=== PATIENT | female | born 1935 | race American Indian/Alaskan Native ===

== ENCOUNTER 2016-06-23 19:30 | Observation (INO) | payer MEDICARE, OTHER ==
[2016-06-23 19:53] VITALS: BMI 29.5
--- NOTE | 2016-06-23 20:06 | ED PDOC ---
Arrival/HPI - General Chief Complaint: High Blood Pressure Time Seen by Provider: 06/23/16 19:41 Historian: Patient - History of Present Illness Narrative History of Present Illness (Text): 06/23/16 20:06 80 year old female with a past medical history that includes diabetes mellitus, CAD with stenting, and hypertension presents with complaint of intermittent chest pain and epigastric discomfort for the past day associated with noted elevated high blood pressure. Patient states she has been compliant with her medications which include Amlodipine, Lisinopril, Carvedilol, Januvia and Metformin. Denies nausea, vomiting, or diarrhea. No shortness of breath. No fever or chills. Appetite intact. Time/Duration: 24 hours Symptom Onset: Sudden Symptom Course: Intermittent Modifying Factors (Text): None Context: Home Past Medical History - Provider Review Nursing Documentation Reviewed: Yes - Infectious Disease Hx of Infectious Diseases: None - Reproductive Menopause: Yes - Cardiac Hx Hypertension: Yes - Pulmonary Hx Respiratory Disorders: No - Neurological Hx Neurological Disorder: No - HEENT Hx HEENT Disorder: No Hx Cataracts: Yes Hx Glaucoma: Yes - Renal Hx Renal Disorder: No - Endocrine/Metabolic Hx Diabetes Mellitus Type 2: Yes - Hematological/Oncological Hx Blood Disorders: No - Integumentary Hx Dermatological Disorder: No - Musculoskeletal/Rheumatological Other/Comment: bunions - Gastrointestinal Hx Gastroesophageal Reflux: Yes - Genitourinary/Gynecological Hx Genitourinary Disorders: No - Psychiatric Hx Psychophysiologic Disorder: No Hx Substance Use: No - Surgical History Hx Appendectomy: Yes Hx Cataract Extraction: Yes Hx Hysterectomy: Yes - Anesthesia Hx Anesthesia: Yes Hx Anesthesia Reactions: No Hx Malignant Hyperthermia: No Family/Social History - Physician Review Nursing Documentation Reviewed: Yes Family/Social History: Unknown Family HX Smoking Status: Never Smoked Hx Alcohol Use: No Hx Substance Use: No Allergies/Home Meds Allergies/Adverse Reactions: Allergies No Known Allergies Allergy (Verified 11/10/14 21:39) Home Medications: Home Meds Medication Instructions Recorded Confirmed Atorvastatin [Lipitor] 40 mg PO HS 11/10/14 06/23/16 Carvedilol [Coreg] 25 mg PO BID 11/10/14 06/23/16 Cholecalciferol [Vitamin D 1000 IU] 1 cap PO BID 11/10/14 06/23/16 Esomeprazole Magnesium [Nexium] 40 mg PO DAILY 11/10/14 06/23/16 Lisinopril [Zestril] 1 tab PO DAILY 06/23/16 06/23/16 SITagliptin [Januvia] 1 tab PO DAILY 06/23/16 06/23/16 amLODIPine [Norvasc] 1 tab PO DAILY 06/23/16 06/23/16 metFORMIN [glucOPHAGE] 1 tab PO BID 06/23/16 06/23/16 Review of Systems - Physician Review All systems were reviewed & negative as marked: Yes - Review of Systems Constitutional: absent: Fevers Respiratory: absent: SOB Cardiovascular: Chest Pain Gastrointestinal: Abdominal Pain. absent: Diarrhea, Nausea, Vomiting, Appetite Changes Physical Exam Vital Signs Reviewed: Yes Vital Signs Pulse Resp BP Pulse Ox 06/23/16 22:31 81 16 155/81 H 97 06/23/16 20:06 91 H 16 187/98 H 96 Blood Pressure: Hypertensive Pulse: Regular Respiratory Rate: Normal Appearance: Positive for: Well-Appearing, Non-Toxic, Comfortable Pain Distress: None Mental Status: Positive for: Alert and Oriented X 3 - Systems Exam Head: Present: Atraumatic, Normocephalic Pupils: Present: PERRL Extroacular Muscles: Present: EOMI Conjunctiva: Present: Normal Mouth: Present: Moist Mucous Membranes Neck: Present: Normal Range of Motion Respiratory/Chest: Present: Clear to Auscultation, Good Air Exchange. No: Respiratory Distress, Accessory Muscle Use Cardiovascular: Present: Regular Rate and Rhythm, Normal S1, S2. No: Murmurs Abdomen: Present: Normal Bowel Sounds. No: Tenderness, Distention, Peritoneal Signs Back: Present: Normal Inspection Upper Extremity: Present: Normal Inspection. No: Cyanosis, Edema Lower Extremity: Present: Normal Inspection. No: Edema Neurological: Present: GCS=15, CN II-XII Intact, Speech Normal Skin: Present: Warm, Dry, Normal Color. No: Rashes Psychiatric: Present: Alert, Oriented x 3, Normal Insight, Normal Concentration Medical Decision Making ED Course and Treatment: Impression: 80 year old female with a past medical history that includes diabetes mellitus and hypertension presents with complaint of intermittent chest and abdominal discomfort for the past day associated with noted elevated high blood pressure. Plan: -- EKG, Chest X-ray -- Aspriin, Nitroglycerin 2% -- Labs -- Reassess and disposition Prior Visits: Notes and results from previous visits were reviewed. Patient last seen in the ED on 11/10/14 for dizziness and discharged home. Progress Notes: 06/23/16 21:27 reviewed radiology, CXR shows no active disease. 06/23/16 22:[address] Brown, who is aware and agrees with plan. Accepts pt in to his service. Pt will go to Telemetry observation for chest pain. Requests Dr. Isaca on consult. - Lab Interpretations Lab Results: 06/23/16 20:03 06/23/16 20:03 Lab Results 06/23/16 21:43: POC Glucose (mg/dL) 143 H 06/23/16 20:03: WBC 9.7 D, RBC 4.84, Hgb 13.8, Hct 41.0, MCV 84.7, MCH 28.5, MCHC 33.7, RDW 14.5, Plt Count 270, MPV 9.9, PT 11.0, INR 1.02, APTT 25.5, Sodium 137, Potassium 4.1, Chloride 99, Carbon Dioxide 28, Anion Gap 14, BUN 14 , Creatinine 0.7, Est GFR ( Amer) > 60, Est GFR (Non-Af Amer) > 60, Random Glucose 139 H, Calcium 10.2, Total Bilirubin 0.7, AST 33, ALT 36, Alkaline Phosphatase 69, Lactate Dehydrogenase 515, Total Creatine Kinase 127, Troponin I < 0.01, Total Protein 8.1, Albumin 4.2, Globulin 3.9, Albumin/ Globulin Ratio 1.1, Lipase 52 I have reviewed the lab results: Yes - RAD Interpretation Radiology Orders: 06/23/16 20:17 CHEST PORTABLE [RAD] Stat Data Processing Auditor: ED Physician - EKG Interpretation EKG Interpretation (Text): EKG shows NSR at 100 BPM with left axis deviation, nonspecific ST/T changes Interpreted by ED Physician: Yes Type: 12 lead EKG - Medication Orders Current Medication Orders: Discontinued Medications Aspirin (Aspirin) 325 mg PO ONCE STA Stop: 06/23/16 20:22 Last Admin: 06/23/16 22:28 Dose: 325 MG Nitroglycerin (Nitro-Bid 2% Oint) 1 ea TOP ONCE STA Stop: 06/23/16 20:22 Last Admin: 06/23/16 22:28 Dose: 1 EA - Scribe Statement The provider has reviewed the documentation as recorded by the Jah Reyna Provider Scribe Attestation: All medical record entries made by the Jah were at my direction and personally dictated by me. I have reviewed the chart and agree that the record accurately reflects my personal performance of the history, physical exam, medical decision making, and the department course for this patient. I have also personally directed, reviewed, and agree with the discharge instructions and disposition. Disposition/Present on Arrival - Present on Arrival Any Indicators Present on Arrival: No History of DVT/PE: No History of Uncontrolled Diabetes: No Urinary Catheter: No History of Decub. Ulcer: No History Surgical Site Infection Following: None - Disposition Have Diagnosis and Disposition been Completed?: Yes Diagnosis: Chest pain Disposition: HOSPITALIZED Disposition Time: 23:20 Patient Plan: Observation Patient Problems: Current Active Problems Problem Status Diagnosed Chest pain Acute Condition: STABLE Discharge Instructions (ExitCare): Chest Pain (ED)
[2016-06-23] MEDS ORDERED: Nitroglycerin 2% Ointment Foilpak UD TOP STA (20:21)
[2016-06-23 20:33] LABS: MEAN CELL VOLUME 84.7 fL (80.0-105.0); MEAN CORPUSCULAR HEMOGLOBIN 28.5 pg (25.0-35.0); MEAN CORPUSCULAR HGB CONC 33.7 g/dl (31.0-37.0); MEAN PLATELET VOLUME 9.9 fl (7.0-11.0); RED CELL DISTRIBUTION WIDTH 14.5 % (11.5-14.5); WHITE BLOOD COUNT 9.7 10^3/ul (4.5-11.0)
[2016-06-23 20:43] LABS: ALB/GLOB RATIO 1.1 (1.1-1.8); ALKALINE PHOSPHATASE 69 U/L (38-133); ALT/SGPT 36 U/L (7-56); AST/SGOT 33 U/L (15-39); BILIRUBIN,TOTAL 0.7 mg/dL (0.2-1.3); BLOOD UREA NITROGEN 14 mg/dL (7-21); CALCIUM 10.2 mg/dL (8.4-10.5); CARBON DIOXIDE 28 mmol/L (21-33); CHLORIDE 99 mmol/L (98-107); GFR AFRICAN-AMERICAN > 60; GLUCOSE,RANDOM 139 mg/dL (70-110); LIPASE 52 U/L (23-300); POTASSIUM 4.1 mmol/L (3.6-5.0); SODIUM 137 mmol/L (132-148); TOTAL PROTEIN 8.1 g/dL (5.8-8.3)
[2016-06-23 20:44] LABS: INR 1.02 (0.93-1.08); PARTIAL THROMBOPLASTIN TIME 25.5 Seconds (23.7-30.8)
[2016-06-23 20:55] LABS: TROPONIN I < 0.01 ng/mL
[2016-06-24 03:11] VITALS: RESP 20; TEMP 98.6
[2016-06-24 06:32] VITALS: O2SAT 98
--- NOTE | 2016-06-24 08:33 | RAD ---
HISTORY: PAIN COMPARISON: 11/10/2014 FINDINGS: LUNGS: No active pulmonary disease. PLEURA: No significant pleural effusion identified, no pneumothorax apparent. CARDIOVASCULAR: Normal. OSSEOUS STRUCTURES: Bilateral glenohumeral osteoarthritis. VISUALIZED UPPER ABDOMEN: Normal. OTHER FINDINGS: None. IMPRESSION: No active disease.
--- NOTE | 2016-06-24 08:54 | CON ---
DATE: 06/24/2016 INDICATIONS: Chest pain, abdominal pain. HISTORY OF PRESENT ILLNESS: This is an 80-year-old woman admitted yesterday through the Emergency Room when she came complaining of abdominal pain radiating into the epigastrium and into the chest. It occurred on and off during the day. She came to the Emergency Room and was admitted. This morning there are no symptoms. There was no orthopnea, PND, syncope, presyncope, lightheadedness, dizziness, vertigo, palpitations, edema, claudication, fever, chills, cough, sputum production, hemoptysis, nausea, vomiting, diarrhea, constipation, melena. PAST MEDICAL HISTORY: Notable for coronary artery disease. She states that she had a coronary intervention several years ago. She does not recall the details, the location or the physician. Apparently a stent was placed in one of her arteries at that time. There is a history of diabetes, hypertension, hyperlipidemia, cataract surgery. There is no history of rheumatic fever, myocardial infarction, congestive heart failure, stroke, TIA or gout. MEDICATIONS: At the time of admission include Lipitor, Coreg, vitamin D, Nexium , lisinopril, Januvia, amlodipine, Glucophage. ALLERGIES: There are no medication allergies reported. SOCIAL HISTORY: She is a nonsmoker. She does not drink. She lives at home. FAMILY HISTORY: Not available. REVIEW OF SYSTEMS: Ten point review of systems otherwise unremarkable except as noted above. PHYSICAL EXAMINATION: GENERAL: She is a well-developed elderly woman lying in bed on telemetry in no acute distress. VITAL SIGNS: Notable for sinus rhythm at 74 beats per minute. She is afebrile. Blood pressure 136/72, respirations 16-20, O2 sat 96% to 98% on room air. HEENT: Reveals no neck vein distention, thyromegaly, or carotid bruits. Mucous membranes are moist. Conjunctivae are pink. NECK: Supple. RESPIRATORY: Lung cesar are clear. HEART: Revealed normal first and second heart sounds. There is a soft systolic murmur along the left sternal border. PMI not displaced. ABDOMEN: Soft. Bowel sounds are present. No mass, organomegaly, tenderness, rebound, or guarding. No CVA tenderness. No palpable abdominal aortic aneurysm. EXTREMITIES: Revealed no cyanosis, clubbing, or edema. NEUROLOGIC: She was awake, alert and oriented. PSYCHIATRIC: Normal as to mood and affect. SKIN: Warm and dry. No rash or cellulitis. LABORATORY AND IMAGING: A chest x-ray is a portable study. It is not reported yet. By my reading there is no congestive heart failure, infiltrate or effusion. The EKG demonstrates regular sinus rhythm, left axis deviation, poor R-wave progression, nonspecific ST wave changes. No change from a previous EKG. CBC is unremarkable. PT, INR, PTT unremarkable. Electrolytes, BUN, creatinine unremarkable. LFTs unremarkable. CK 127. Troponin less than 0.01. Lipase 52. IMPRESSION: The patient is an 80-year-old woman with hypertension, diabetes, hyperlipidemia, coronary artery disease and a prior coronary artery stent 3 or 4 years ago (details unavailable) admitted with abdominal, mid epigastric and chest pain episodes yesterday, which have resolved. The EKG did not show any new ischemic change and the first troponin was negative. She is comfortable this morning. I will repeat her EKG and get a troponin level. I will check an echocardiogram. She can be out of bed. If her enzymes are negative and there are no further episodes, she can be considered for outpatient nuclear stress testing. If there is continued abdominal pain a GI evaluation may also be indicated. I will continue her usual medications at this time including aspirin, Coreg, Lipitor, Norvasc, lisinopril. She will continue her diabetic meds as well. I will follow along with you. I will make additional recommendations based on her clinical course. Toi Isaac MD cc: [id number] TT: 06/24/2016 08:53:00 Confirmation # [id number] Dictation # [id number] anthony SCHROEDER
[2016-06-24 09:27] VITALS: BP 156/84
--- NOTE | 2016-06-24 09:44 | HP ---
An 80-year-old black female with history of hypertension, glaucoma, hyperlipidemia, CAD, status post stents. The patient admitted to the hospital with abdominal pain and accelerated hypertension. The patient had been complaining of 2-3 days of some abdominal pain. She does have occasional constipati on, in which she self-medicates with. She also denies any chest pain, palpitations, lightheadedness, dizziness, diaphoresis, nausea or vomiting. Does complain of abdominal discomfort, mid epigastric a nd left upper quadrant, for last 24-48 hours. SOCIAL HISTORY: Negative for tobacco or alcohol or IV drug abuse or illicit drug abuse. FAMILY HISTORY: Noncontributory. PAST SURGICAL HISTORY: Only for eye surgery and glaucoma. MEDICATIONS: As stated in the chart. REVIEW OF SYSTEMS: A 12-point is otherwise unremarkable. PHYSICAL EXAMINATION: GENERAL: Shows a well-developed, but slightly obese, black female, in no apparent distress. HEENT: Essentially within normal limits. HEART: Regular sinus rhythm. Negative S3, no murmurs. CHEST: Clear to auscultation and percussion. ABDOMEN: Soft. No masses palpable. No rebound or guarding. VITAL SIGNS: Blood pressure right now is 136/72, temperature is 98.6. LABORATORY DATA: Unremarkable except for a slightly elevated blood sugar of 139. The patient is on metformin for this. IMPRESSION: Abdominal pain, hypertension and glaucoma in an 80-year-old black female with a history of coronary artery disease. PLAN: To repeat troponins x 2, EKG echo. If negative, patient will be discharged home. Abilio Brown MD cc: [id number] TT: 06/24/2016 09:44:25 en
[2016-06-24] MEDS ORDERED: Pantoprazole 40 mg Susp UD PO SCH (10:00)
--- NOTE | 2016-06-24 10:18 | CARD ---
APPROVED REPORT EKG Measurement Heart [id number] <Conclusion> Normal sinus rhythm Left axis deviation Moderate voltage criteria for LVH, may be normal variant Abnormal ECG
--- NOTE | 2016-06-24 12:37 | CARD ---
APPROVED REPORT EKG Measurement Heart [id number] <Conclusion> Normal sinus rhythm Left axis deviation Moderate voltage criteria for LVH, may be normal variant Nonspecific ST and T wave abnormality
[2016-06-24 13:06] VITALS: PULSE 86
--- NOTE | 2016-06-25 07:39 | CARD ---
APPROVED REPORT EXAM: Two-dimensional and M-mode echocardiogram with Doppler and color Doppler. Other Information Quality : AverageRhythm : INDICATION Chest Pain 2D DIMENSIONS Left Atrium (2D)4.2 (1.6-4.0cm)IVSd1.2 (0.7-1.1cm) LVDd4.1 (3.9-5.9cm)PWd1.2 (0.7-1.1cm) LVDs3.0 (2.5-4.0cm)FS (%) 26.9 % LVEF (%)53.0 (>50%) M-Mode DIMENSIONS Aortic Root3.20 (2.2-3.7cm)Aortic Cusp Exc.2.00 (1.5-2.0cm) Aortic Valve AoV Peak Uqokopkp480.0cm/sLVOT Peak Ppfeuldn33.8cm/sLVOT VTI18.70cm AI P 1/2 [id number] Mitral Valve MV E Nphzkdgs86.9cm/sMV A [place]11.3cm/sE/A ratio0.6 TDI Lateral E' Peak V8.19cm/sMedial E' Peak V5.46cm/sE/Lateral E'4.7 E/Medial E'7.1 Pulmonary Valve PV Peak Azwquqkt74.7cm/sPV Peak Grad.2mmHg Tricuspid Valve TR Peak Dwxvueyl199re/sRAP [id number] Peak Gr.38mmHg [id number] LEFT VENTRICLE The left ventricle is normal size. There is normal left ventricular wall thickness. The left ventricular function is normal. The left ventricular ejection fraction is within the normal range. There is normal LV segmental wall motion. RIGHT VENTRICLE The right ventricle is normal size. ATRIA The left atrium is mildly dilated. The right atrium size is normal. The interatrial septum is intact with no evidence for an atrial septal defect. AORTIC VALVE The aortic valve is mildly calcified. There is trace aortic regurgitation. MITRAL VALVE The mitral valve is normal in structure. Mitral regurgitation is mild. TRICUSPID VALVE The tricuspid valve is normal in structure. There is mild tricuspid regurgitation. There is mild-moderate pulmonary hypertension. PULMONIC VALVE The pulmonic valve is not well visualized. GREAT VESSELS The aortic root is normal in size. PERICARDIAL EFFUSION There is no pericardial effusion. <Conclusion> 272-2 There is normal left ventricular wall thickness. The left ventricular function is normal. There is trace aortic regurgitation. Mitral regurgitation is mild. There is mild tricuspid regurgitation. There is mild-moderate pulmonary hypertension.
--- NOTE | 2016-07-11 10:29 | DS ---
An 80-year-old black female admitted to the hospital with accelerated hypertension, some chest discom fort. The patient was seen in consultation by Dr. Isaac. Her blood pressure was controlled in the hospital. She had an echocardiogram done while in the hospital. Her enzymes remained negative. EKG did not change. Her echo showed some normal left wall thickness, mild mitral regurgitation, mild to moderate pulmonary hypertension. The patient was continued on her blood pressure medication. Her vi madalyn signs trended down. Blood pressure was 156/84. LABORATORY DATA: Unremarkable. Blood sugars were mildly elevated up to 182. Troponins were negativ e x 2. Eventually, the patient was able to be discharged home in improved condition. FINAL DISCHARGE DIAGNOSES: Accelerated hypertension, nonspecific chest pain, glaucoma and cataracts. The patient will be followed as an outpatient. Abilio Brown MD cc: [id number] TT: 07/11/2016 10:28:20 leia
== END 2016-06-24 13:47 | disposition home or self-care (01) ==
LOC: ED 19:30 → ERH 23:14 → 2RSO 06-24 01:48
PROVIDERS: ADMIT Internal Medicine; ATTEND Internal Medicine
DX: R07.9 Chest pain, unspecified (principal); I10 Essential (primary) hypertension; I25.10 Atherosclerotic heart disease of native coronary artery without angina pectoris; E11.9 Type 2 diabetes mellitus without complications; E78.5 Hyperlipidemia, unspecified; K59.00 Constipation, unspecified; H40.9 Unspecified glaucoma; R10.9 Unspecified abdominal pain; Z95.5 Presence of coronary angioplasty implant and graft; Z79.84 Long term (current) use of oral hypoglycemic drugs
CPT/HCPCS: 36415; 71010; 80053; 82550; 82948; 83615; 83690; 84484; 85027; 85610; 85730; 93005; 93306; 99285; G0378

== ENCOUNTER 2016-07-01 13:04 | Emergency (ER) | payer MEDICARE, OTHER ==
[2016-07-01 13:13] VITALS: BMI 29.2
[2016-07-01 13:15] VITALS: TEMP 98.7
--- NOTE | 2016-07-01 13:51 | ED PDOC ---
Arrival/HPI - General Chief Complaint: Abdominal Pain Time Seen by Provider: 07/01/16 13:26 Historian: Patient, Family - History of Present Illness Narrative History of Present Illness (Text): 07/01/16 13:47 An 80 year old female presents to the emergency department complaining of one week duration of chest and epigastric pain. Patient's daughter reports patient had taken aspirin before coming to emergency department. Patient denies any other complaints at this time. PMD: Dr. Brown Time/Duration: 1 week Symptom Onset: Sudden Symptom Course: Unchanged Quality: Other (pain) Activities at Onset: Rest Modifying Factors (Text): aspirin Context: Home Associated Symptoms (Text): lightheaded (near syncope) Past Medical History - Provider Review Nursing Documentation Reviewed: Yes - Infectious Disease Hx of Infectious Diseases: None - Cardiac Hx Cardiac Disorders: Yes Hx Hypertension: Yes - Pulmonary Hx Respiratory Disorders: Yes Hx Bronchitis: Yes - Neurological Hx Neurological Disorder: Yes Hx Dizziness: Yes - HEENT Hx HEENT Disorder: Yes Hx Cataracts: Yes (with surgery) Hx Glaucoma: Yes - Renal Hx Renal Disorder: No - Endocrine/Metabolic Hx Endocrine Disorders: Yes Hx Diabetes Mellitus Type 2: Yes - Hematological/Oncological Hx Blood Disorders: No - Integumentary Hx Dermatological Disorder: No - Musculoskeletal/Rheumatological Hx Musculoskeletal Disorders: Yes Hx Falls: Yes - Gastrointestinal Hx Gastrointestinal Disorders: Yes Hx Gastroesophageal Reflux: Yes - Genitourinary/Gynecological Hx Genitourinary Disorders: No - Psychiatric Hx Psychophysiologic Disorder: No Hx Substance Use: No - Surgical History Hx Appendectomy: Yes Hx Breast Biopsy: Yes Hx Cardiac Catheterization: Yes Hx Coronary Stent: Yes (x1) Hx Hysterectomy: Yes Other/Comment: tonsillectomy - Anesthesia Hx Anesthesia: Yes Hx Anesthesia Reactions: No Hx Malignant Hyperthermia: No Family/Social History - Physician Review Nursing Documentation Reviewed: Yes Family/Social History: No Known Family HX Smoking Status: Never Smoked Hx Alcohol Use: No Hx Substance Use: No Allergies/Home Meds Allergies/Adverse Reactions: Allergies No Known Allergies Allergy (Verified 07/01/16 13:13) Home Medications: Home Meds Medication Instructions Recorded Confirmed Atorvastatin [Lipitor] 40 mg PO HS 11/10/14 07/01/16 Carvedilol [Coreg] 25 mg PO BID 11/10/14 07/01/16 Cholecalciferol [Vitamin D 1000 IU] 1 cap PO BID 11/10/14 07/01/16 Esomeprazole Magnesium [Nexium] 40 mg PO DAILY 11/10/14 07/01/16 Lisinopril [Zestril] 1 tab PO DAILY 06/23/16 07/01/16 SITagliptin [Januvia] 1 tab PO DAILY 06/23/16 07/01/16 amLODIPine [Norvasc] 1 tab PO DAILY 06/23/16 07/01/16 metFORMIN [glucOPHAGE] 1 tab PO BID 06/23/16 07/01/16 Review of Systems - Physician Review All systems were reviewed & negative as marked: Yes Physical Exam - Physical Exam Narrative Physical Exam (Text): 07/01/16 13:52- Review of Systems Constitutional: Normal. absent: Fatigue, Weight Change, Fevers Eyes: Normal ENT: Normal Respiratory: Normal absent: SOB, Cough, Sputum Cardiovascular: Present: chest pain, near syncope absent: Palpitations Gastrointestinal: Present: epigastric pain absent: Diarrhea, Nausea, Vomiting Genitourinary: Normal. absent: Dysuria, Frequency, Hematuria Musculoskeletal: Normal. absent: Arthralgias, Back Pain, Neck Pain Skin: Normal Neurological: Normal absent: Focal Weakness Endocrine: Normal Hemo/Lymphatic: Normal Psychiatric: Normal - Physical exam Patient appears age appropriate, speaking full sentences without difficulty - Systems Exam Head: Present: Atraumatic, Normocephalic Pupils: Present: PERRL Extraocular Muscles: Present: EOMI Conjunctiva: Present: Normal Mouth: Present: Moist Mucous Membranes Neck: Present: Normal Range of Motion. No: MIDLINE TENDERNESS, Paraspinal Tenderness Respiratory/Chest: Present: Clear to Auscultation, Good Air Exchange. No: Respiratory Distress, Accessory Muscle Use, Tachypneic Cardiovascular: Present: Regular Rate and Rhythm, Normal S1, S2, Peripheral Pulses Present. No: Murmurs Abdomen: Present: Normal Bowel Sounds, No: Tenderness, Peritoneal Signs, Rebound, Guarding, Distention Back: Present: Normal Inspection. No: Midline Tenderness, Paraspinal Tenderness Upper Extremity: Present: Normal Inspection. No: Cyanosis, Edema Lower Extremity: Present: Normal Inspection. No: Edema Neurological: Present: GCS=15, Speech Normal, cranial nerves II through XII fully intact with no cerebellar abnormality, neuro-sensory fully intact. No focal neurological deficits. Skin: Present: Warm, Dry, Normal Color. No: Rashes Lymphatic: Present: OX3, NI, NC Psychiatric: Present: Alert, Oriented x 3, Normal Insight, Normal Concentration Vital Signs Reviewed: Yes Vital Signs Temp Pulse Pulse Resp BP BP Pulse Ox 07/01/16 16:57 75 18 165/79 H 96 07/01/16 15:02 79 18 168/86 H 96 07/01/16 13:15 80 174/89 H 07/01/16 13:14 98.7 F 89 16 177/93 H 96 Temperature: Afebrile Blood Pressure: Hypertensive Pulse: Regular Respiratory Rate: Normal Appearance: Positive for: Well-Appearing, Non-Toxic, Comfortable Pain Distress: None Mental Status: Positive for: Alert and Oriented X 3 Medical Decision Making ED Course and Treatment: 07/01/16 13:52 Impression: An 80 year old female with chest and epigastric pain. On physical exam, patient had no acute findings. Plan: -- EKG -- Chest xray -- Labs -- Nitrostat -- Reassess and disposition Prior Visits: Notes and results from previous visits were reviewed. Patient last seen in the emergency department on 06/23/16 for evaluation of intermittent chest pain and epigastric discomfort. Dr. Brown accepted patient to his service. Patient was in telemetry observation for chest pain. Progress Notes: EKG: Ordered, reviewed, and independently interpreted the EKG. Rate : 80 BPM Rhythm : NSR Interpretation : No ST-segment elevations or depressions, no T-wave inversions, normal intervals. No changes versus previous EKG Chest xray: Creator : Rodolfo Michel MD IMPRESSION: No active disease. 07/01/16 15:[address] Brown in detail. He states to discharge patient home with outpatient follow-up in his office on Friday. Noted that patient did not have a recent CAT scan of abdomen and pelvis, patient was complaining of epigastric discomfort. Additional imaging ordered. 07/01/16 17:34 Metal Products Viewer : Ronnie Tapia MD PROCEDURE: CT Abdomen and pelvis dated 07/01/2016 Radiation dose: LOWER THORAX: Mild the atelectasis both lung bases. No focal consolidation effusion or pneumothorax. . Heart size is borderline/mildly enlarged. Small hiatal hernia. LIVER: Liver exhibits relatively normal size measuring 17 cm in CC dimension. No obvious hepatic mass collection or calcification. GALLBLADDER AND BILE DUCTS: Gallbladder is physiologically distended. No evidence of intraluminal gallbladder calculi. PANCREAS: Visualized portions of the pancreas grossly unremarkable. SPLEEN: Spleen exhibits normal size and attenuation pattern. ADRENALS: On somewhat prominent and nodular appearing left adrenal gland. The possibility of an underlying nodule not excluded KIDNEYS AND URETERS: Kidneys exhibit symmetric nephrograms. No evidence of nephrolithiasis or hydronephrosis. Parapelvic renal cysts are felt to be present. There is a tiny approximately 4 mm low-attenuation focus upper pole left kidney that is too small to characterize though could represent tiny cyst. Another even smaller focus low attenuation posterior aspect lower pole BLADDER: The urinary bladder is significantly distended. Rule out urinary retention. REPRODUCTIVE: Status post hysterectomy APPENDIX: Appendix is not seen consistent with this patient's history of appendectomy. BOWEL: Evaluation of the bowel is limited due to the lack of oral contrast material. The stomach incompletely distended which may account for thick-walled appearance. The possibility of gastritis or other intrinsic/ invasive wall lesion including but not limited to gastric carcinoma cannot be excluded. Clinical correlation recommended. Visualized loops of small bowel exhibit normal contour and caliber. No evidence of acute mechanical small bowel obstruction. . Moderate amount of stool seen within the cecum and to a lesser degree ascending colon suggesting mild fecal retention. No evidence of mural wall thickening. PERITONEUM: Unremarkable. No fluid collection. No free air. LYMPH NODES: Unremarkable. No enlarged lymph nodes. VASCULATURE: Unremarkable. No aortic aneurysm. BONES: No fracture or destructive lesion. OTHER FINDINGS: None. IMPRESSION: Markedly enlarged urinary bladder. Rule out urinary retention. Small parapelvic and tiny cortical cyst left kidney. Slightly prominent and nodular appearing left adrenal gland. Mild wall thickening of the stomach to likely due to underdistention however gastritis or other intrinsic/ invasive wall lesion including but not limited to gastric carcinoma not excluded. Clinical correlation recommended. On reevaluation, patient reports that she feels much better and would like to be discharged home. Patient's repeat abdominal exam is soft, nontender, non distended with positive bowel sounds in all 4 quadrants and no peritoneal signs. Patient is tolerating PO without any difficulty. CAT scan read has been reviewed with patient and she was instructed to follow- up with her primary physician for further workup. dw Dr. Brown again, states he will arrange f/u for pt Patient currently states she has no chest discomfort, says that she has no abdominal pain, back pain, denies shortness of breath or dyspnea on exertion. Pt states she understands to return to the ER right away for new or worsening symptoms or for inability to f/u with PMD or specialist as instructed. Patient states that she fully agrees with and understands discharge instructions. States that she agrees with the plan and disposition. Verbalized and repeated discharge instructions and plan. I have given the patient opportunity to ask any additional questions. ctions and plan. I have given the patient opportunity to ask any additional questions. - Lab Interpretations Lab Results: 07/01/16 14:10 07/01/16 14:10 Lab Results 07/01/16 14:10: Sodium 140, Potassium 4.6, Chloride 103, Carbon Dioxide 28, Anion Gap 14, BUN 12, Creatinine 0.8, Est GFR ( Amer) > 60, Est GFR (Non- Af Amer) > 60, Random Glucose 100, Calcium 10.0, Total Bilirubin 0.7, AST 34, ALT 43, Alkaline Phosphatase 61, Lactate Dehydrogenase 461, Total Creatine Kinase 90, Troponin I < 0.01, Total Protein 7.6, Albumin 4.0, Globulin 3.6, Albumin/Globulin Ratio 1.1 07/01/16 14:10: PT 10.7, INR 0.99, APTT 24.6 07/01/16 14:10: WBC 8.6, RBC 4.56, Hgb 13.1, Hct 39.3, MCV 86.2, MCH 28.7, MCHC 33.3, RDW 14.7 H, Plt Count 265, MPV 9.9, Gran % 64.8, Lymph % (Auto) 24.4, Boundary % (Auto) 9.0 H, Eos % (Auto) 1.6, Baso % (Auto) 0.2, Gran # 5.58, Lymph # 2.1, Boundary # 0.8 H, Eos # 0.1, Baso # 0.02 I have reviewed the lab results: Yes - RAD Interpretation Radiology Orders: 07/01/16 13:42 CHEST PORTABLE [RAD] Stat 07/01/16 15:08 ABD & PELVIS IV CONTRAST ONLY [CT] Stat - EKG Interpretation Interpreted by ED Physician: Yes Type: 12 lead EKG - Medication Orders Current Medication Orders: Discontinued Medications Sodium Chloride (Sodium Chloride 0.9%) 1,000 mls @ 1,000 mls/hr IV .Q1H STA Stop: 07/01/16 16:07 Last Admin: 07/01/16 15:57 Dose: 1,000 mls/hr Iohexol (Omnipaque 350 100 Ml) Confirm Administered Dose 350 mg .ROUTE .STK-MED ONE Stop: 07/01/16 16:20 Nitroglycerin (Nitrostat Sl Tab) 0.3 mg SL STAT STA Stop: 07/01/16 13:42 Last Admin: 07/01/16 14:01 Dose: 0.3 mg - Scribe Statement The provider has reviewed the documentation as recorded by the Luisibkirt Gomes All medical record entries made by the uLisibkirt were at my direction and personally dictated by me. I have reviewed the chart and agree that the record accurately reflects my personal performance of the history, physical exam, medical decision making, and the department course for this patient. I have also personally directed, reviewed, and agree with the discharge instructions and disposition. Disposition/Present on Arrival - Present on Arrival Any Indicators Present on Arrival: No History of DVT/PE: No History of Uncontrolled Diabetes: No Urinary Catheter: No History of Decub. Ulcer: No History Surgical Site Infection Following: None - Disposition Have Diagnosis and Disposition been Completed?: Yes Diagnosis: Epigastric pain Disposition: HOME/ ROUTINE Disposition Time: 17:42 Patient Plan: Discharge Condition: GOOD Discharge Instructions (ExitCare): Chest Pain (ED), Epigastric Pain (ED) Additional Instructions: PLEASE RETURN TO THE EMERGENCY DEPARTMENT FOR NEW OR WORSENING SYMPTOMS. RETURN RIGHT AWAY IF YOU CANNOT FOLLOW UP WITH YOUR PRIMARY CARE DOCTOR, CLINIC, OR SPECIALIST IN 1-2 DAYS. Referrals: Abilio Brown MD [Primary Care Provider] - Follow up with primary
--- NOTE | 2016-07-01 14:11 | RAD ---
HISTORY: cough COMPARISON: 06/23/2016 FINDINGS: LUNGS: No active pulmonary disease. PLEURA: No significant pleural effusion identified, no pneumothorax apparent. CARDIOVASCULAR: Normal. OSSEOUS STRUCTURES: No significant abnormalities. VISUALIZED UPPER ABDOMEN: Normal. OTHER FINDINGS: None. IMPRESSION: No active disease.
[2016-07-01 14:18] LABS: ADD MANUAL DIFF? NO
[2016-07-01 14:24] LABS: BASO # 0.02 K/mm3 (0.0-2.0); BASO % 0.2 % (0.0-3.0); EOS # 0.1 (0.0-0.7); EOS % 1.6 % (1.5-5.0); GRAN # 5.58 (1.4-6.5); GRAN % 64.8 % (50.0-68.0); HEMATOCRIT 39.3 % (36.0-48.0); LYMPH # 2.1 (1.2-3.4); LYMPH % 24.4 % (22.0-35.0); MEAN CELL VOLUME 86.2 fL (80.0-105.0); MEAN CORPUSCULAR HEMOGLOBIN 28.7 pg (25.0-35.0); MEAN CORPUSCULAR HGB CONC 33.3 g/dl (31.0-37.0); MEAN PLATELET VOLUME 9.9 fl (7.0-11.0); MONO # 0.8 (0.1-0.6); PLATELET COUNT 265 10^3/uL (120.0-450.0); RED CELL DISTRIBUTION WIDTH 14.7 % (11.5-14.5); WHITE BLOOD COUNT 8.6 10^3/ul (4.5-11.0)
[2016-07-01 14:40] LABS: INR 0.99 (0.93-1.08); PARTIAL THROMBOPLASTIN TIME 24.6 Seconds (23.7-30.8)
[2016-07-01 14:43] LABS: ALB/GLOB RATIO 1.1 (1.1-1.8); ALKALINE PHOSPHATASE 61 U/L (38-133); ALT/SGPT 43 U/L (7-56); AST/SGOT 34 U/L (15-39); BILIRUBIN,TOTAL 0.7 mg/dL (0.2-1.3); BLOOD UREA NITROGEN 12 mg/dL (7-21); CARBON DIOXIDE 28 mmol/L (21-33); CHLORIDE 103 mmol/L (98-107); GFR AFRICAN-AMERICAN > 60; GLUCOSE,RANDOM 100 mg/dL (70-110); POTASSIUM 4.6 mmol/L (3.6-5.0); SODIUM 140 mmol/L (132-148); TOTAL PROTEIN 7.6 g/dL (5.8-8.3)
[2016-07-01 14:54] LABS: TROPONIN I < 0.01 ng/mL
[2016-07-01] MEDS ORDERED: Sodium Chloride 0.9% 1,000 ML IV STA (15:08)
[2016-07-01] MEDS ORDERED: Iohexol 350 MG/100 ML VIAL ONE (16:19)
--- NOTE | 2016-07-01 17:31 | CT ---
PROCEDURE: CT Abdomen and pelvis dated 07/01/2016 HISTORY: abd pain. Patient questionnaire indicates prior hysterectomy and appendectomy. COMPARISON: None. TECHNIQUE: Contiguous axial images of the abdomen and pelvis. Oral contrast was administered. No IV contrast given. Coronal and Sagittal reformats generated. Radiation dose: Total exam DLP = mGy-cm. This CT exam was performed using one or more of the following dose reduction techniques: Automated exposure control, adjustment of the mA and/or kV according to patient size, and/or use of iterative reconstruction technique. Contrast dose: 100 cc of Omnipaque 350 contrast material Radiation dose: Total exam DLP = 1115.45 mGy-cm. FINDINGS: LOWER THORAX: Mild the atelectasis both lung bases. No focal consolidation effusion or pneumothorax. . Heart size is borderline/mildly enlarged. Small hiatal hernia. LIVER: Liver exhibits relatively normal size measuring 17 cm in CC dimension. No obvious hepatic mass collection or calcification. GALLBLADDER AND BILE DUCTS: Gallbladder is physiologically distended. No evidence of intraluminal gallbladder calculi. PANCREAS: Visualized portions of the pancreas grossly unremarkable. SPLEEN: Spleen exhibits normal size and attenuation pattern. ADRENALS: On somewhat prominent and nodular appearing left adrenal gland. The possibility of an underlying nodule not excluded KIDNEYS AND URETERS: Kidneys exhibit symmetric nephrograms. No evidence of nephrolithiasis or hydronephrosis. Parapelvic renal cysts are felt to be present. There is a tiny approximately 4 mm low-attenuation focus upper pole left kidney that is too small to characterize though could represent tiny cyst. Another even smaller focus low attenuation posterior aspect lower pole BLADDER: The urinary bladder is significantly distended. Rule out urinary retention. REPRODUCTIVE: Status post hysterectomy APPENDIX: Appendix is not seen consistent with this patient's history of appendectomy. BOWEL: Evaluation of the bowel is limited due to the lack of oral contrast material. The stomach incompletely distended which may account for thick-walled appearance. The possibility of gastritis or other intrinsic/ invasive wall lesion including but not limited to gastric carcinoma cannot be excluded. Clinical correlation recommended. Visualized loops of small bowel exhibit normal contour and caliber. No evidence of acute mechanical small bowel obstruction. . Moderate amount of stool seen within the cecum and to a lesser degree ascending colon suggesting mild fecal retention. No evidence of mural wall thickening. PERITONEUM: Unremarkable. No fluid collection. No free air. LYMPH NODES: Unremarkable. No enlarged lymph nodes. VASCULATURE: Unremarkable. No aortic aneurysm. BONES: No fracture or destructive lesion. OTHER FINDINGS: None. IMPRESSION: Markedly enlarged urinary bladder. Rule out urinary retention. Small parapelvic and tiny cortical cyst left kidney. Slightly prominent and nodular appearing left adrenal gland. Mild wall thickening of the stomach to likely due to underdistention however gastritis or other intrinsic/ invasive wall lesion including but not limited to gastric carcinoma not excluded. Clinical correlation recommended.
[2016-07-01 18:44] VITALS: BP 168/91; PULSE 80; RESP 20; O2SAT 97
--- NOTE | 2016-07-02 23:12 | CARD ---
APPROVED REPORT EKG Measurement Heart [id number] <Conclusion> Normal sinus rhythm Left axis deviation Minimal voltage criteria for LVH, may be normal variant Abnormal ECG
== END 2016-07-01 18:55 | disposition home or self-care (01) ==
LOC: ED 13:04
DX: R10.13 Epigastric pain (principal); I10 Essential (primary) hypertension; E11.9 Type 2 diabetes mellitus without complications
CPT/HCPCS: 71010; 74177; 80053; 82550; 82948; 83615; 84484; 85025; 85610; 85730; 93005; 99285; J7040; Q9967

== ENCOUNTER 2016-07-17 08:47 | Day surgery (SDC) | payer MEDICARE, OTHER ==
[2016-07-12 09:11] VITALS: BMI 29.3
[2016-07-17] MEDS ORDERED: Lidocaine 1% Inj (20ml) ONE (10:23)
[2016-07-17] MEDS ORDERED: Propofol 10 mg/ml Inj (20 ML) ONE (10:23)
[2016-07-17] MEDS ORDERED: Lactated Ringer's 1,000 ML IV SCH (10:39)
[2016-07-17 12:08] VITALS: BP 156/85; PULSE 82; RESP 16; TEMP 98; O2SAT 99
== END 2016-07-17 12:23 | disposition home or self-care (01) ==
LOC: ENDO 08:47
PROVIDERS: ATTEND Specialist
DX: K31.7 Polyp of stomach and duodenum (principal); R10.13 Epigastric pain; K44.9 Diaphragmatic hernia without obstruction or gangrene; E11.9 Type 2 diabetes mellitus without complications; I10 Essential (primary) hypertension; I25.10 Atherosclerotic heart disease of native coronary artery without angina pectoris
CPT/HCPCS: 43239; 88305; 88342; J2704; J7120

== ENCOUNTER 2016-08-06 10:00 | Inpatient (IN) | payer MEDICARE, OTHER ==
[2016-08-06 10:04] VITALS: BMI 29.5
--- NOTE | 2016-08-06 10:37 | ED PDOC ---
Arrival/HPI - General Chief Complaint: Abdominal Pain Time Seen by Provider: 08/06/16 10:07 Historian: Patient, Family - History of Present Illness Narrative History of Present Illness (Text): 08/06/16 10:40 An 80 year old female presents to the emergency department complaining of chest pain since this morning. Patient also notes shortness of breath. Patient's family reports chest and epigastric pain similar to previous episodes she has had in the past. Patient currently does not have chest pain. Patient denies any other complaints at this time. PMD: Dr. Brown Symptom Onset: Sudden Symptom Course: Improving Activities at Onset: Rest Context: Home Associated Symptoms (Text): shortness of breath Past Medical History - Provider Review Nursing Documentation Reviewed: Yes - Infectious Disease Hx of Infectious Diseases: None - Reproductive Menopause: Yes - Cardiac Hx Hypertension: Yes - Pulmonary Hx Respiratory Disorders: Yes Hx Bronchitis: Yes - Neurological Hx Neurological Disorder: Yes Hx Dizziness: Yes - HEENT Hx HEENT Disorder: Yes Hx Cataracts: Yes (with surgery) Hx Glaucoma: Yes - Renal Hx Renal Disorder: No - Endocrine/Metabolic Hx Endocrine Disorders: Yes Hx Diabetes Mellitus Type 2: Yes - Hematological/Oncological Hx Blood Transfusions: Yes (POSSIBLY IN S NOT SURE) Hx Blood Transfusion Reaction: (UNKNOWN) - Integumentary Hx Dermatological Disorder: No - Musculoskeletal/Rheumatological Hx Musculoskeletal Disorders: No - Gastrointestinal Hx Gastrointestinal Disorders: Yes Hx Gastroesophageal Reflux: Yes - Genitourinary/Gynecological Hx Genitourinary Disorders: No - Psychiatric Hx Emotional Abuse: No Hx Physical Abuse: No Hx Substance Use: No - Surgical History Hx Hysterectomy: Yes Other/Comment: Multiple eye surgeries - Anesthesia Hx Anesthesia Reactions: No Hx Malignant Hyperthermia: No - Suicidal Assessment Feels Threatened In Home Enviroment: No Family/Social History - Physician Review Nursing Documentation Reviewed: Yes Family/Social History: No Known Family HX Smoking Status: Never Smoked Hx Alcohol Use: No Hx Substance Use: No Allergies/Home Meds Allergies/Adverse Reactions: Allergies No Known Allergies Allergy (Verified 08/06/16 10:08) Home Medications: Home Meds Medication Instructions Recorded Confirmed Atorvastatin [Lipitor] 40 mg PO HS 11/10/14 08/06/16 Carvedilol [Coreg] 25 mg PO BID 11/10/14 08/06/16 Cholecalciferol [Vitamin D 1000 IU] 1,000 iu PO BID 11/10/14 08/06/16 Esomeprazole Magnesium [Nexium] 40 mg PO DAILY 11/10/14 08/06/16 Lisinopril [Zestril] 40 mg PO DAILY 06/23/16 08/06/16 SITagliptin [Januvia] 100 mg PO DAILY 06/23/16 08/06/16 amLODIPine [Norvasc] 5 mg PO DAILY 06/23/16 08/06/16 metFORMIN [glucOPHAGE] 500 mg PO BID 06/23/16 08/06/16 Aspirin [[place] Aspirin] 81 mg PO DAILY 07/12/16 08/06/16 Multivit-Min/FA/Lycopen/Lutein 1 tab PO DAILY 07/17/16 08/06/16 [Centrum Silver Tablet] Review of Systems - Physician Review All systems were reviewed & negative as marked: Yes Physical Exam - Physical Exam Narrative Physical Exam (Text): 08/06/16 10:37- Review of Systems Constitutional: Normal. absent: Fatigue, Weight Change, Fevers Eyes: Normal ENT: Normal Respiratory: Present: shortness of breath absent: Cough, Sputum Cardiovascular: Present: chest pain absent: Palpitations, Syncope Gastrointestinal: Present: epigastric pain absent: Diarrhea, Nausea, Vomiting Genitourinary: Normal. absent: Dysuria, Frequency, Hematuria Musculoskeletal: Normal. absent: Arthralgias, Back Pain, Neck Pain Skin: Normal Neurological: Normal absent: Focal Weakness Endocrine: Normal Hemo/Lymphatic: Normal Psychiatric: Normal - Physical exam Patient appears age appropriate, speaking full sentences without difficulty - Systems Exam Head: Present: Atraumatic, Normocephalic Pupils: Present: PERRL Extraocular Muscles: Present: EOMI Conjunctiva: Present: Normal Mouth: Present: Moist Mucous Membranes Neck: Present: Normal Range of Motion. No: MIDLINE TENDERNESS, Paraspinal Tenderness Respiratory/Chest: Present: Clear to Auscultation, Good Air Exchange. No: Respiratory Distress, Accessory Muscle Use, Tachypnic Cardiovascular: Present: Regular Rate and Rhythm, Normal S1, S2, Peripheral Pulses Present. No: Murmurs Abdomen: Present: Normal Bowel Sounds, No: Tenderness, Peritoneal Signs, Rebound, Guarding, Distention Back: Present: Normal Inspection. No: Midline Tenderness, Paraspinal Tenderness Upper Extremity: Present: Normal Inspection. No: Cyanosis, Edema Lower Extremity: Present: Normal Inspection. No: Edema Neurological: Present: GCS=15, Speech Normal, cranial nerves II through XII fully intact with no cerebellar abnormality, neuro-sensory fully intact. No focal neurological deficits. Skin: Present: Warm, Dry, Normal Color. No: Rashes Lymphatic: Present: OX3, NI, NC Psychiatric: Present: Alert, Oriented x 3, Normal Insight, Normal Concentration Vital Signs Reviewed: Yes Vital Signs Temp Pulse Resp BP Pulse Ox 08/06/16 10:11 97.6 F 96 H 18 151/88 H 95 Temperature: Afebrile Blood Pressure: Hypertensive Pulse: Regular Respiratory Rate: Normal Appearance: Positive for: Well-Appearing, Non-Toxic, Comfortable Pain Distress: None Mental Status: Positive for: Alert and Oriented X 3 Medical Decision Making ED Course and Treatment: 08/06/16 10:32 Patient's previous records reviewed, patient was discharged on 06/24/16 after being evaluated for hypertension and chest discomfort. Patient has been seen by fermentologist, her cardiac enzymes were negative, no changes in EKG, echo showed left wall thickness with mitral regurgitation and pulmonary hypertension. Patient's endoscopy report from 07/17/16 reviewed. Patient has a small hiatal hernia. 4 mm gastric polyp in the fundus. It was removed. Duodenum was normal. It was recommended the patient to follow up in 4 weeks. Impression: An 80 year old female with chest pain. No acute findings on physical exam. Differential Diagnosis included but are not limited to: pneumonia vs. Acute coronary syndrome vs. gastritis Plan: -- EKG -- chest xray -- labs -- aspirin, nitroglycerin, protonix -- Reassess and disposition Prior Visits: Notes and results from previous visits were reviewed. Patient last reported to the emergency department on 07/01/16 for evaluation of chest and epigastric pain. Patient was to follow up with Dr. Brown. Patient was discharged. Progress Notes: EKG: EKG shows NSR at [address]-segment elevations, normal intervals. Interpreted by me. 08/06/16 11:[address] Isaac, agrees with tele/obs chest xray: Creator : Shaye Tomlinson MD 08/06/2016 11:00 IMPRESSION: No active pulmonary disease. 08/06/16 12:[address] Brown, aware of tele/obs under his service pt aware of and agrees with pain - Lab Interpretations Lab Results: 08/06/16 10:15 08/06/16 10:15 Lab Results 08/06/16 10:15: Sodium 139, Potassium 3.8, Chloride 104, Carbon Dioxide 26, Anion Gap 13, BUN 16, Creatinine 0.7, Est GFR ( Amer) > 60, Est GFR (Non- Af Amer) > 60, Random Glucose 133 H, Calcium 10.4, Total Bilirubin 0.6, AST 31, ALT 37, Alkaline Phosphatase 63, Lactate Dehydrogenase 493, Total Creatine Kinase 127, Troponin I < 0.01, Total Protein 7.7, Albumin 4.4, Globulin 3.3, Albumin/Globulin Ratio 1.3 08/06/16 10:15: PT 10.8, INR 1.00, APTT 25.5 08/06/16 10:15: WBC 9.3, RBC 4.87, Hgb 13.8, Hct 42.5, MCV 87.3, MCH 28.3, MCHC 32.5, RDW 14.3, Plt Count 280, MPV 10.1, Gran % 71.8 H, Lymph % (Auto) 17.8 L, [place] % (Auto) 8.5 H, Eos % (Auto) 1.6, Baso % (Auto) 0.3, Gran # 6.67 H, Lymph # 1.7, [place] # 0.8 H, Eos # 0.2, Baso # 0.03 I have reviewed the lab results: Yes - RAD Interpretation Radiology Orders: 08/06/16 10:29 CHEST PORTABLE [RAD] Stat - EKG Interpretation Interpreted by ED Physician: Yes Type: 12 lead EKG - Medication Orders Current Medication Orders: Discontinued Medications Aspirin (Aspirin Chewable) 324 mg PO STAT STA Stop: 08/06/16 10:29 Last Admin: 08/06/16 10:41 Dose: 324 mg Nitroglycerin (Nitrostat Sl Tab) 0.3 mg SL STAT STA Stop: 08/06/16 10:29 Last Admin: 08/06/16 10:41 Dose: 0.3 mg Pantoprazole Sodium (Protonix Inj) 40 mg IVP STAT STA Stop: 08/06/16 10:29 Last Admin: 08/06/16 10:41 Dose: 40 mg - Scribe Statement The provider has reviewed the documentation as recorded by the Jah Gomes Provider Scribe Attestation: All medical record entries made by the Jah were at my direction and personally dictated by me. I have reviewed the chart and agree that the record accurately reflects my personal performance of the history, physical exam, medical decision making, and the department course for this patient. I have also personally directed, reviewed, and agree with the discharge instructions and disposition. Disposition/Present on Arrival - Present on Arrival Any Indicators Present on Arrival: No History of DVT/PE: No History of Uncontrolled Diabetes: No Urinary Catheter: No History of Decub. Ulcer: No History Surgical Site Infection Following: None - Disposition Have Diagnosis and Disposition been Completed?: Yes Diagnosis: Chest pain Disposition: HOSPITALIZED Disposition Time: 12:08 Patient Plan: Observation Condition: FAIR Discharge Instructions (ExitCare): Chest Pain (ED) Referrals: Abilio Brown MD [Primary Care Provider] - Follow up with primary
[2016-08-06 10:44] LABS: ADD MANUAL DIFF? NO
[2016-08-06 10:56] LABS: ALB/GLOB RATIO 1.3 (1.1-1.8); ALKALINE PHOSPHATASE 63 U/L (38-133); ALT/SGPT 37 U/L (7-56); AST/SGOT 31 U/L (15-39); BILIRUBIN,TOTAL 0.6 mg/dL (0.2-1.3); BLOOD UREA NITROGEN 16 mg/dL (7-21); CALCIUM 10.4 mg/dL (8.4-10.5); CARBON DIOXIDE 26 mmol/L (21-33); CHLORIDE 104 mmol/L (98-107); GFR AFRICAN-AMERICAN > 60; GLUCOSE,RANDOM 133 mg/dL (70-110); POTASSIUM 3.8 mmol/L (3.6-5.0); SODIUM 139 mmol/L (132-148); TOTAL PROTEIN 7.7 g/dL (5.8-8.3)
--- NOTE | 2016-08-06 11:00 | RAD ---
HISTORY: Cough COMPARISON: 07/01/2016. FINDINGS: LUNGS: The lungs are clear. PLEURA: No significant pleural effusion identified, no pneumothorax apparent. CARDIOVASCULAR: Normal. OSSEOUS STRUCTURES: No significant abnormalities. VISUALIZED UPPER ABDOMEN: Normal. OTHER FINDINGS: None. IMPRESSION: No active pulmonary disease.
[2016-08-06 11:01] LABS: BASO # 0.03 K/mm3 (0.0-2.0); BASO % 0.3 % (0.0-3.0); EOS # 0.2 (0.0-0.7); EOS % 1.6 % (1.5-5.0); GRAN # 6.67 (1.4-6.5); GRAN % 71.8 % (50.0-68.0); HEMATOCRIT 42.5 % (36.0-48.0); LYMPH # 1.7 (1.2-3.4); LYMPH % 17.8 % (22.0-35.0); MEAN CELL VOLUME 87.3 fL (80.0-105.0); MEAN CORPUSCULAR HEMOGLOBIN 28.3 pg (25.0-35.0); MEAN CORPUSCULAR HGB CONC 32.5 g/dl (31.0-37.0); MEAN PLATELET VOLUME 10.1 fl (7.0-11.0); MONO # 0.8 (0.1-0.6); MONO % 8.5 % (1.0-6.0); PLATELET COUNT 280 10^3/uL (120.0-450.0); RED CELL DISTRIBUTION WIDTH 14.3 % (11.5-14.5); WHITE BLOOD COUNT 9.3 10^3/ul (4.5-11.0)
[2016-08-06 11:04] LABS: PARTIAL THROMBOPLASTIN TIME 25.5 Seconds (23.7-30.8)
[2016-08-06 11:08] LABS: TROPONIN I < 0.01 ng/mL
[2016-08-06] MEDS ORDERED: Pneumococcal 23-Valent Vaccine IM ONE (22:45)
[2016-08-07] MEDS ORDERED: Pantoprazole 40 mg EC Tab PO SCH (06:30)
[2016-08-07] MEDS: Pantoprazole 40 mg EC Tab PO SCH (07:47)
[2016-08-07 08:02] LABS: ADD MANUAL DIFF? NO
[2016-08-07 08:07] LABS: BASO # 0.03 K/mm3 (0.0-2.0); BASO % 0.5 % (0.0-3.0); EOS # 0.2 (0.0-0.7); EOS % 2.4 % (1.5-5.0); GRAN # 3.69 (1.4-6.5); GRAN % 57.8 % (50.0-68.0); HEMATOCRIT 39.5 % (36.0-48.0); LYMPH # 1.8 (1.2-3.4); LYMPH % 28.3 % (22.0-35.0); MEAN CELL VOLUME 86.6 fL (80.0-105.0); MEAN CORPUSCULAR HEMOGLOBIN 28.1 pg (25.0-35.0); MEAN CORPUSCULAR HGB CONC 32.4 g/dl (31.0-37.0); MEAN PLATELET VOLUME 10.1 fl (7.0-11.0); MONO # 0.7 (0.1-0.6); PLATELET COUNT 274 10^3/uL (120.0-450.0); RED CELL DISTRIBUTION WIDTH 14.3 % (11.5-14.5); WHITE BLOOD COUNT 6.4 10^3/ul (4.5-11.0)
--- NOTE | 2016-08-07 08:42 | HP ---
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 The patient had coronary artery disease in the past, seen in consultation by Dr. Isaac. The patient came to the Emergency Room complaining of some chest pain, shortness of b reath, dizziness, and abdominal pain. The patient has had some recent episodes of obstipation. The patient was evaluated in the Emergency Room, and cardiology was called. The patient was admitted for evaluation and possible stress test. PHYSICAL EXAMINATION: GENERAL: Shows a well-developed well-nourished black female in no apparent ____ the following mornin g. HEENT: Essentially within normal limits. HEART: Regular sinus rhythm. No S3 or murmurs. CHEST: Clear to auscultation and percussion. ABDOMEN: Slightly tender in the mid-epigastrium, but otherwise unremarkable. EXTREMITIES: Without cyanosis, clubbing, or edema. NEUROLOGIC: Grossly intact. Troponins are negative at this point. IMPRESSION: An 80-year-old black female with history of hypertension, history of coronary artery dis ease, history of glaucoma, presenting with chest pain. Abilio Brown MD cc: [id number] TT: 08/07/2016 08:41:35 jn
[2016-08-07 09:00] LABS: ALB/GLOB RATIO 1.2 (1.1-1.8); ALKALINE PHOSPHATASE 56 U/L (38-133); ALT/SGPT 37 U/L (7-56); AST/SGOT 29 U/L (15-39); BILIRUBIN,TOTAL 0.6 mg/dL (0.2-1.3); BLOOD UREA NITROGEN 12 mg/dL (7-21); CALCIUM 9.8 mg/dL (8.4-10.5); CARBON DIOXIDE 25 mmol/L (21-33); CHLORIDE 106 mmol/L (98-107); GFR AFRICAN-AMERICAN > 60; GLUCOSE,RANDOM 127 mg/dL (70-110); POTASSIUM 3.8 mmol/L (3.6-5.0); SODIUM 138 mmol/L (132-148); TOTAL PROTEIN 6.9 g/dL (5.8-8.3)
[2016-08-07] MEDS: Non Formulary Medication (Multivit-Min/Fa/Lycopen/Lutein [Centrum Silver Tablet] 1 TAB) PO SCH (09:38)
[2016-08-07] MEDS: POLYETHYLENE GLYCOL 3350 17 GM/Dose PACKET PO SCH ×2 (09:38→17:10)
[2016-08-07] MEDS ORDERED: Non Formulary Medication (Multivit-Min/Fa/Lycopen/Lutein [Centrum Silver Tablet] 1 TAB) PO SCH (10:00)
--- NOTE | 2016-08-07 16:43 | CON ---
DATE: 08/07/2016 REQUESTING PHYSICIAN: Dr. Brown. REASON FOR CONSULTATION: Chest pain. HISTORY OF PRESENT ILLNESS: This is an 80-year-old woman with a history of coronary artery disease a nd apparent PCI in the past, as well as a history of diabetes and hypertension, who presented with ch est discomfort. The pain began yesterday. She describes this as a fullness in her chest. She has h ad several admissions and evaluations for this recently. She also has epigastric discomfort at times . She underwent cardiac catheterization and stent placement in the past, although she cannot recall the details. She believes she has 2 stents, placed at different times. She cannot recall when her l ast stress test was performed, but believes it was quite a few years ago. PAST MEDICAL HISTORY: Notable for the problems mentioned above. She does have a history of glaucoma . She has also undergone prior cataract surgery. MEDICATIONS: At home include Lipitor, carvedilol, vitamin D, Nexium, lisinopril, Januvia, Norvasc, G lucophage, aspirin, and vitamins. ALLERGIES: She has no reported allergies. SOCIAL HISTORY: She does not smoke or drink. FAMILY HISTORY: Both parents are from age-related illness. REVIEW OF SYSTEMS: Ten-point review of systems otherwise unremarkable. PHYSICAL EXAMINATION: GENERAL: She is an elderly woman, appears relatively comfortable at rest. VITAL SIGNS: Her blood pressure is 126/66, with a pulse of 86, in sinus, respirations are 16. She i s afebrile. HEENT: Normocephalic, atraumatic. Pupils equal to light and accommodation. NECK: Supple. No JVD noted. CHEST: Clear to auscultation and percussion. HEART: PMI normal position. No pathologic gallops noted. ABDOMEN: Soft, nontender, normoactive bowel sounds. EXTREMITIES: No clubbing, cyanosis, or edema. SKIN: Warm and dry. PSYCHIATRIC: Normal mood and affect. NEUROLOGIC: Alert and oriented x 3. DIAGNOSTIC DATA: Potassium is 3.8, BUN and creatinine 12 and 0.7, glucose 127. Cardiac enzymes have all been negative. White count 6.4; hemoglobin and hematocrit 12.8 and 39.5; with a platelet count of 274,000. Electrocardiogram reveals sinus rhythm with a leftward axis, nonspecific ST and T abnorm alities. Chest x-ray reveals normal cardiac silhouette with clear lung cesar. IMPRESSION: 1. Chest pain and epigastric discomfort, etiology uncertain. Some aspects of her pain sound suspici ous for cardiac disease, other symptoms sound more likely musculoskeletal or gastrointestinal in natu re. 2. Known coronary artery disease, status post remote percutaneous coronary intervention. Details un available. 3. History of hypertension, diabetes, and hyperlipidemia. 4. Rest of problems as noted. RECOMMENDATIONS: Further cardiac evaluation appears appropriate given her recurrent symptoms. The o ption of stress testing versus cardiac catheterization was discussed with her. She would prefer stre ss testing at this time, which certainly seems reasonable. Her current medications will be continued . The option of outpatient versus inpatient stress testing was reviewed and she would prefer to have this performed as quickly as possible in the hospital. Further recommendations will be made based u marko those results. Thank you for this consultation. I will be happy to follow along as needed. Chas Levin MD cc: [id number] TT: 08/07/2016 16:43:24 Confirmation # [id number] Dictation # [id number] rene
--- NOTE | 2016-08-08 08:04 | CP.PCM.PN ---
Subjective - Date & Time of Evaluation Date of Evaluation: 08/08/16 Time of Evaluation: 07:00 - Subjective Subjective: Stable on 2R. Confused during the night. No CP. V/S noted PE: Lungs: clear Cor.: S1S2, sys. murmur Abd.: soft Ext.: no edema Neuro.: alert Labs noted. All trops neg. Objective - Vital Signs/Intake and Output Vital Signs (last 24 hours): Temp Pulse Resp BP Pulse Ox 98.2 F 100 H 20 147/73 96 08/08/16 06:00 08/08/16 06:00 08/08/16 06:00 08/08/16 06:00 08/08/16 06:00 - Medications Medications: Current Medications Amlodipine Besylate (Norvasc) 5 mg PO DAILY [facility] Last Admin: 08/07/16 09:37 Dose: 5 mg Aspirin (Ecotrin) 81 mg PO DAILY [facility] Last Admin: 08/07/16 09:37 Dose: 81 mg Atorvastatin Calcium (Lipitor) 40 mg PO HS [facility] Last Admin: 08/07/16 21:37 Dose: 40 mg Carvedilol (Coreg) 25 mg PO BID [facility] Last Admin: 08/07/16 17:09 Dose: 25 mg Cholecalciferol (Vitamin D) 1,000 iu PO BID [facility] Last Admin: 08/07/16 17:08 Dose: 1,000 iu Lisinopril (Zestril) 40 mg PO DAILY [facility] Last Admin: 08/07/16 09:36 Dose: 40 mg Metformin HCl (Glucophage) 500 mg PO BID [facility] Last Admin: 08/07/16 17:08 Dose: 500 mg Non-Formulary Medication (Multivit-Min/Fa/Lycopen/Lutein [Centrum Silver Tablet] ) 1 tab PO DAILY [facility] Last Admin: 08/07/16 09:38 Dose: Not Given Pantoprazole Sodium (Protonix Ec Tab) 40 mg PO ACB [facility] Last Admin: 08/07/16 07:47 Dose: 40 mg Polyethylene Glycol (Miralax) 17 gm PO BID [facility] Last Admin: 08/07/16 17:10 Dose: 17 gm Sitagliptin Phosphate (Januvia) 100 mg PO DAILY [facility] Last Admin: 08/07/16 09:37 Dose: 100 mg - Labs Labs: 08/07/16 07:30 08/07/16 07:30 PT 10.8 Seconds (9.9-11.8) 08/06/16 10:15 INR 1.00 (0.93-1.08) 08/06/16 10:15 APTT 25.5 Seconds (23.7-30.8) 08/06/16 10:15 Assessment and Plan - Assessment and Plan (Free Text) Plan: Assessment: Chest Pain CAD/Remote PCIs Diabetes HBP Glaucoma Cataracts Confusion Plan: Case D/W Dr. Levin. Nuclear stress test today. Additional recs. to follow.
[2016-08-08] MEDS ORDERED: Aminophylline 25 mg/ml Inj ONE (08:22)
[2016-08-08] MEDS: Pantoprazole 40 mg EC Tab PO SCH (08:33)
--- NOTE | 2016-08-08 08:42 | PN ---
DATE: 08/08/2016 SUBJECTIVE: An 80-year-old black female admitted to the hospital with chest pain, shortness of breat h, history of hypertension and glaucoma. VITAL SIGNS: Stable. Blood pressure 147/73, the patient's heart rate is 100, 98.2 is the temperatur e. The patient was seen in consultation by cardiology. She is having a thallium stress test today. If this is negative, she will be discharged home. PHYSICAL EXAMINATION: Unchanged. 12-POINT REVIEW OF SYSTEMS: Unremarkable. There is no chest pain today. Abilio Brown MD cc: [id number] TT: 08/08/2016 08:42:03 Confirmation # [id number] Dictation # [id number] mn
[2016-08-08] MEDS: POLYETHYLENE GLYCOL 3350 17 GM/Dose PACKET PO SCH ×2 (10:26→18:37)
[2016-08-08] MEDS: Non Formulary Medication (Multivit-Min/Fa/Lycopen/Lutein [Centrum Silver Tablet] 1 TAB) PO SCH (10:27)
--- NOTE | 2016-08-08 11:07 | CARD ---
APPROVED REPORT EKG Measurement Heart [id number] <Conclusion> Normal sinus rhythm Moderate voltage criteria for LVH, may be normal variant LAD PRWP No change
--- NOTE | 2016-08-08 21:46 | CARD ---
APPROVED REPORT Protocol: LEXISCAN Test Type: Lexiscan Sestamibi Stress Test Attending Physician: Dr. Toi Isaac Referring Physician: Dr. Abilio Brown Test Indications: Chest Pain. Height:5 ft 8 in Weight:194lbs Medications: Norvasc, Aspirin, Lipitor, Coreg, Zestril, Glucophage, Protonix, Miralax, Januvia Medical History: 80 F with chest pain and h/o CAD/PCI. Target HR: 139 bpm Resting ECG: RSR Resting Heart Rate: 84 bpm Resting Blood Pressure: 142/86mmHg Submaximum (85%): 118 bpm PROCEDURE Pharmacologic stress testing was performed using 0.4mg per 5ml of regadenoson given intravenously over 7-10 seconds. POST EXERCISE Reason for Termination: Protocol completed Target HR: No Max HR: 93 bpm 74% of Maximum Predicted HR: 139 bpm Exercise duration: 05:10 min:sec, 0 Stage Exercise capacity: 1.0METs Max Blood Pressure: 142/86mmHg Blood Pressure response to exercise: normal Heart Rate response to exercise: normal Chest Pain: No, none Angina index: 0 Arrhythmia: No, none ST Change: No, none Deviation: 0 mm TEST SUMMARY [id number]. INFUSIONDOSE 101:000.00.01.0102/.1.00:29 Yesenia inj over 10 sec and Wing inj at 25 sec. INFUSIONDOSE 201:[id number]/72.0. INFUSIONDOSE 301:[id number]/72.0. INFUSIONDOSE 401:000.00.01.096/.0. INFUSIONDOSE 501:000.00.01.093/.0. INFUSIONDOSE 600:090.00.01.093/.0. INTERPRETATION Stress EKG Conclusion: Lexiscan nuclear stress test which was negative for chest pain, ischemia and arrhythmia. Nuclear scans pending. Signed by Toi Isaac Electronically Approved: 08/08/2016 12:07:16 EXAM: Myocardial Perfusion REST/STRESS Stress Test Type: Pharmacologic Imaging Protocol Rest Spect myocardial perfusion imaging was performed in supine position 30 minutes following the injection of 10 mCi of Tc-99 Myoview. At peak stress, the patient was injected intravenously with 30.8mCi of Tc-99 tetrofosmin after an infusion time of minutes and 10 seconds. Gated Stress Spect was performed 90 minutes after intravenous Tc-99 Myoview injection. The images were gated to evaluate regional wall motion and calculate ventricular ejection fraction.Images were reconstructed using backfilter projection method in short horizontal and verticle long axis. Spect slices were generated. LV Perfusion The quality of the study is good. The left ventricle is normal in size. The right ventricle is unremarkable. The lung uptake is normal. The distribution of tracer reveals a small area of moderately decreased perfusion in the apical wall on the stress study. The remainder of the LV myocardium is unremarkable. The rest myocardial perfusion study shows improvement of apical defect. Wall Motion Wall motion study shows good contractility of the left ventricle. LVEF = 68%. Conclusion 1. Probably abnormal SPECT myocardial perfusion study. 2. Partially reversible, apical defect is suspicious of ischemia. However, the effect of shifting breast position cannot be ruled out. 3. Normal gated wall motion of the left ventricle.
--- NOTE | 2016-08-08 22:31 | CP.PCM.PN ---
Subjective - Date & Time of Evaluation Date of Evaluation: 08/08/16 Time of Evaluation: 22:28 - Subjective Subjective: Patient was seen at bed side in presence of daughter, as per nurse she has been confused.Daughter states that she is on lorazepam prn at home and last time she has had it was on past Friday. She states that she is in [place], this is July and year is 2015. Has no chest pain, sob. No other complaints. This 80 year old woman was admitted with chest pain, sob. Has PMH of HTN,CAD, S/P PCI, HLD, DM II, dizziness,cataract glaucoma. Objective - Vital Signs/Intake and Output Vital Signs (last 24 hours): Temp Pulse Resp BP Pulse Ox 98.8 F 86 20 130/77 96 08/08/16 12:00 08/08/16 18:37 08/08/16 12:00 08/08/16 18:37 08/08/16 06:00 Intake and Output: 08/08/16 08/09/16 18:59 06:59 Intake Total 500 Output Total 500 Balance 0 - Medications Medications: Current Medications Amlodipine Besylate (Norvasc) 5 mg PO DAILY [facility] Last Admin: 08/08/16 10:25 Dose: 5 mg Aspirin (Ecotrin) 81 mg PO DAILY [facility] Last Admin: 08/08/16 10:25 Dose: 81 mg Atorvastatin Calcium (Lipitor) 40 mg PO HS [facility] Last Admin: 08/07/16 21:37 Dose: 40 mg Carvedilol (Coreg) 25 mg PO BID [facility] Last Admin: 08/08/16 18:37 Dose: 25 mg Cholecalciferol (Vitamin D) 1,000 iu PO BID [facility] Last Admin: 08/08/16 18:37 Dose: 1,000 iu Lisinopril (Zestril) 40 mg PO DAILY [facility] Last Admin: 08/08/16 10:25 Dose: 40 mg Metformin HCl (Glucophage) 500 mg PO BID [facility] Last Admin: 08/08/16 18:37 Dose: 500 mg Non-Formulary Medication (Multivit-Min/Fa/Lycopen/Lutein [Centrum Silver Tablet] ) 1 tab PO DAILY [facility] Last Admin: 08/08/16 10:27 Dose: Not Given Pantoprazole Sodium (Protonix Ec Tab) 40 mg PO ACB [facility] Last Admin: 08/08/16 08:33 Dose: Not Given Polyethylene Glycol (Miralax) 17 gm PO BID [facility] Last Admin: 08/08/16 18:37 Dose: 17 gm Sitagliptin Phosphate (Januvia) 100 mg PO DAILY [facility] Last Admin: 08/08/16 10:25 Dose: 100 mg - Labs Labs: 08/07/16 07:30 08/07/16 07:30 PT 10.8 Seconds (9.9-11.8) 08/06/16 10:15 INR 1.00 (0.93-1.08) 08/06/16 10:15 APTT 25.5 Seconds (23.7-30.8) 08/06/16 10:15 - Constitutional Appears: Well, No Acute Distress - Head Exam Head Exam: NORMAL INSPECTION, NORMOCEPHALIC Additional comments: Sitting in the chair. - Eye Exam Eye Exam: Normal appearance - ENT Exam ENT Exam: Mucous Membranes Moist - Neck Exam Neck Exam: Normal Inspection - Respiratory Exam Respiratory Exam: NORMAL BREATHING PATTERN - Cardiovascular Exam Cardiovascular Exam: absent: JVD - GI/Abdominal Exam GI & Abdominal Exam: absent: Distended - Rectal Exam Rectal Exam: Deferred - Back Exam Back Exam: NORMAL INSPECTION - Neurological Exam Neurological Exam: Altered - Psychiatric Exam Psychiatric exam: Normal Affect, Normal Mood - Skin Skin Exam: Normal Color Assessment and Plan - Assessment and Plan (Free Text) Assessment: Confusion. Chest pain. HTN. DM II HLD. CAD. Plan: Ativan 0.5 mg PO stat. Continue present management.
--- NOTE | 2016-08-09 07:38 | CP.PCM.PN ---
Subjective - Date & Time of Evaluation Date of Evaluation: 08/09/16 Time of Evaluation: 07:00 - Subjective Subjective: Stable on 2R. Confused during the night. No CP. Daughter at bedside. We discussed abn nuclear scans and possible cardiac cath. V/S noted PE: Lungs: clear Cor.: S1S2, sys. murmur Abd.: soft Ext.: no edema Neuro.: alert Labs noted. All trops neg. Nuclear stress test: Suspicious for apical ischemia Objective - Vital Signs/Intake and Output Vital Signs (last 24 hours): Temp Pulse Resp BP Pulse Ox 98.3 F 74 20 143/74 100 08/09/16 06:00 08/09/16 06:00 08/09/16 06:00 08/09/16 06:00 08/09/16 06:00 Intake and Output: 08/09/16 08/09/16 06:59 18:59 Intake Total 120 Balance 120 - Medications Medications: Current Medications Amlodipine Besylate (Norvasc) 5 mg PO DAILY [facility] Last Admin: 08/08/16 10:25 Dose: 5 mg Aspirin (Ecotrin) 81 mg PO DAILY [facility] Last Admin: 08/08/16 10:25 Dose: 81 mg Atorvastatin Calcium (Lipitor) 40 mg PO HS [facility] Last Admin: 08/08/16 23:09 Dose: 40 mg Carvedilol (Coreg) 25 mg PO BID [facility] Last Admin: 08/08/16 18:37 Dose: 25 mg Cholecalciferol (Vitamin D) 1,000 iu PO BID [facility] Last Admin: 08/08/16 18:37 Dose: 1,000 iu Lisinopril (Zestril) 40 mg PO DAILY [facility] Last Admin: 08/08/16 10:25 Dose: 40 mg Metformin HCl (Glucophage) 500 mg PO BID [facility] Last Admin: 08/08/16 18:37 Dose: 500 mg Non-Formulary Medication (Multivit-Min/Fa/Lycopen/Lutein [Centrum Silver Tablet] ) 1 tab PO DAILY [facility] Last Admin: 08/08/16 10:27 Dose: Not Given Pantoprazole Sodium (Protonix Ec Tab) 40 mg PO ACB [facility] Last Admin: 08/08/16 08:33 Dose: Not Given Polyethylene Glycol (Miralax) 17 gm PO BID [facility] Last Admin: 08/08/16 18:37 Dose: 17 gm Sitagliptin Phosphate (Januvia) 100 mg PO DAILY [facility] Last Admin: 08/08/16 10:25 Dose: 100 mg - Labs Labs: 08/07/16 07:30 08/07/16 07:30 PT 10.8 Seconds (9.9-11.8) 08/06/16 10:15 INR 1.00 (0.93-1.08) 08/06/16 10:15 APTT 25.5 Seconds (23.7-30.8) 08/06/16 10:15 Assessment and Plan - Assessment and Plan (Free Text) Plan: Assessment: Chest Pain Nuclear stress test suspicious for apical ischemia. CAD/Remote PCIs Brad, 2010 Diabetes HBP Glaucoma Cataracts Confusion Plan: I spoke with her daughter this AM. cardiac cath to define current cor. anatomy vs. medical therapy. They will discuss further and consult with Dr. Brown. I will tentatively schedule this for Friday.
[2016-08-09] MEDS: Pantoprazole 40 mg EC Tab PO SCH (09:00)
[2016-08-09] MEDS: POLYETHYLENE GLYCOL 3350 17 GM/Dose PACKET PO SCH ×2 (10:24→18:50)
[2016-08-09] MEDS: Non Formulary Medication (Multivit-Min/Fa/Lycopen/Lutein [Centrum Silver Tablet] 1 TAB) PO SCH (10:32)
--- NOTE | 2016-08-09 16:03 | PN ---
DATE: 08/09/[address] Brown. SUBJECTIVE: The patient is an 80-year-old, sitting in chair. Denies any chest pain, no shortness of breath, no headache, no nausea, no vomiting. Daughter at bedside. Eating and tolerating. No nausea , no vomiting, no diarrhea. PHYSICAL EXAMINATION: VITAL SIGNS: She is afebrile, pulse 79, respirations 20, blood pressure 110/62. LUNGS: Bilateral good airflow, no rhonchi or crackle. HEART: S1, S2 audible. ABDOMEN: Soft, nontender, no rebound, no guarding. HEENT: She has glaucoma and wearing shades. NEUROLOGIC: She is awake and alert, able to communicate. EXTREMITIES: Bilateral legs: No edema. LABORATORY: Her blood sugar is 123. Stress test is abnormal. She has partially reversible apical d efect suspicious for ischemia. Could be shifting of position but cannot be ruled out. Nuclear gated wall motion of the left ventricle is normal. ASSESSMENT: 1. Chest pain with abnormal stress test. 2. Hypertension. 3. Hyperlipidemia. 4. History of coronary artery disease status post angioplasty a couple of years ago. 5. Noninsulin dependent diabetes. 6. History of glaucoma. PLAN: As daughter states Dr. Isaac told the family that if the stress test is abnormal, she will st ay over the weekend and will have cardiac cath done Friday. MAR reviewed, found to be appropriate. We will reevaluate the patient in a.m. Tang Shetty MD cc: [phone] TT: 08/09/2016 16:02:20 Confirmation # [id number] Dictation # [id number] ln
[2016-08-09] MEDS: Insulin Lispro (humaLOG) MEDIUM Coverage SC SCH ×2 (16:50→21:35)
[2016-08-10] MEDS: Insulin Lispro (humaLOG) MEDIUM Coverage SC SCH ×4 (07:53→21:45)
[2016-08-10] MEDS: Pantoprazole 40 mg EC Tab PO SCH (07:56)
--- NOTE | 2016-08-10 07:56 | CP.PCM.PN ---
Subjective - Date & Time of Evaluation Date of Evaluation: 08/10/16 Time of Evaluation: 07:00 - Subjective Subjective: Stable on 2R. No CP. Daughter at bedside. We discussed abn nuclear scans and possible cardiac cath. They are in agreement to proceed with cath/possible PCI on Friday. V/S noted PE: Lungs: clear Cor.: S1S2, sys. murmur Abd.: soft Ext.: no edema Neuro.: alert Labs noted. All trops neg. FSBS's noted Nuclear stress test: Suspicious for apical ischemia Objective - Vital Signs/Intake and Output Vital Signs (last 24 hours): Temp Pulse Resp BP Pulse Ox 98.1 F 60 20 148/73 96 08/10/16 07:00 08/10/16 07:00 08/10/16 07:00 08/10/16 07:00 08/10/16 07:00 Intake and Output: 08/10/16 08/10/16 06:59 18:59 Intake Total 540 Output Total 2 Balance 538 - Medications Medications: Current Medications Amlodipine Besylate (Norvasc) 5 mg PO DAILY [facility] Last Admin: 08/09/16 10:23 Dose: 5 mg Aspirin (Ecotrin) 81 mg PO DAILY [facility] Last Admin: 08/09/16 10:24 Dose: 81 mg Atorvastatin Calcium (Lipitor) 40 mg PO HS [facility] Last Admin: 08/09/16 21:14 Dose: 40 mg Carvedilol (Coreg) 25 mg PO BID [facility] Last Admin: 08/09/16 18:50 Dose: 25 mg Cholecalciferol (Vitamin D) 1,000 iu PO BID [facility] Last Admin: 08/09/16 18:51 Dose: 1,000 iu Insulin Human Lispro (Humalog Med) 0 units SC [facility] PRN Reason: Protocol Last Admin: 08/09/16 21:35 Dose: Not Given Lisinopril (Zestril) 40 mg PO DAILY [facility] Last Admin: 08/09/16 10:24 Dose: 40 mg Metformin HCl (Glucophage) 500 mg PO BID [facility] Last Admin: 08/08/16 18:37 Dose: 500 mg Non-Formulary Medication (Multivit-Min/Fa/Lycopen/Lutein [Centrum Silver Tablet] ) 1 tab PO DAILY [facility] Last Admin: 08/09/16 10:32 Dose: Not Given Pantoprazole Sodium (Protonix Ec Tab) 40 mg PO ACB [facility] Last Admin: 08/09/16 09:00 Dose: 40 mg Polyethylene Glycol (Miralax) 17 gm PO BID [facility] Last Admin: 08/09/16 18:50 Dose: 17 gm Sitagliptin Phosphate (Januvia) 100 mg PO DAILY [facility] Last Admin: 08/09/16 10:23 Dose: 100 mg - Labs Labs: PT 10.8 Seconds (9.9-11.8) 08/06/16 10:15 INR 1.00 (0.93-1.08) 08/06/16 10:15 APTT 25.5 Seconds (23.7-30.8) 08/06/16 10:15 Assessment and Plan - Assessment and Plan (Free Text) Plan: Assessment: Chest Pain Nuclear stress test suspicious for apical ischemia. CAD/Remote PCIs Brad 2010 Diabetes HBP Glaucoma Cataracts Confusion Plan: I spoke with her daughter this AM. They agree toardiac cath to define current cor. anatomy and possible PCI on Friday.
[2016-08-10] MEDS: POLYETHYLENE GLYCOL 3350 17 GM/Dose PACKET PO SCH ×2 (09:19→17:09)
[2016-08-10] MEDS: Non Formulary Medication (Multivit-Min/Fa/Lycopen/Lutein [Centrum Silver Tablet] 1 TAB) PO SCH (09:21)
[2016-08-10] MEDS ORDERED: Magnesium Hydroxide Susp 30 ml UD PO STA (11:12)
--- NOTE | 2016-08-10 11:55 | PN ---
DATE: 08/10/2016 SUBJECTIVE: The patient is an 80-year-old, seen and examined. Denies any chest pain, no shortness o f breath. Complained of constipation, did not have bowel movement for 2 days. She states usually mi lk of magnesia helps her. Also, complained of some headache. PHYSICAL EXAMINATION: VITAL SIGNS: She is afebrile, pulse 79, respirations 18, blood pressure 132/73. LUNGS: Bilateral fair airflow, no rhonchi or crackle. HEART: S1, S2 audible. ABDOMEN: Soft, nontender, no rebound, no guarding. NEUROLOGIC: The patient is awake and alert, able to communicate, ambulatory. LABORATORY EXAMINATION: There is no new lab available today. Blood sugar is 139. ASSESSMENT: 1. Uncontrolled hypertension. 2. Abnormal stress test, scheduled to have catheterization done on Friday at 3:00. 3. Glaucoma. 4. Coronary artery disease, status post angioplasty a couple of years ago. 5. Hyperlipidemia. 6. Constipation. 7. History of peptic ulcer disease. PLAN: I will order for Tylenol p.r.n., give her a dose of milk of magnesia. We will continue her on telemetry monitoring. Plan for cath on Friday. Tang Shetty MD cc: [phone] TT: 08/10/2016 11:54:08 Confirmation # [id number] Dictation # [id number] tn
[2016-08-10] MEDS: OPTH OD SCH ×2 (17:10→21:37)
[2016-08-10] MEDS: COMBIGAN OD SCH (17:10)
[2016-08-10] MEDS: TRAVATAN Z 0.004% OD SCH (21:37)
--- NOTE | 2016-08-11 07:17 | CP.PCM.PN ---
Subjective - Date & Time of Evaluation Date of Evaluation: 08/11/16 Time of Evaluation: 07:00 - Subjective Subjective: Stable on 2R. No CP ior SOB V/S noted PE: Lungs: clear Cor.: S1S2, sys. murmur Abd.: soft Ext.: no edema Neuro.: alert Labs noted. All trops neg. FSBS's noted Nuclear stress test: Suspicious for apical ischemia Objective - Vital Signs/Intake and Output Vital Signs (last 24 hours): Temp Pulse Resp BP Pulse Ox 98.2 F 69 20 110/54 L 100 08/11/16 06:00 08/11/16 06:00 08/11/16 06:00 08/11/16 06:00 08/11/16 06:00 - Medications Medications: Current Medications Acetaminophen (Tylenol 325mg Tab) 650 mg PO Q6H PRN PRN Reason: Fever >100.4 F Last Admin: 08/10/16 21:36 Dose: 650 mg Amlodipine Besylate (Norvasc) 5 mg PO DAILY [facility] Last Admin: 08/10/16 09:20 Dose: 5 mg Aspirin (Ecotrin) 81 mg PO DAILY [facility] Last Admin: 08/10/16 09:20 Dose: 81 mg Atorvastatin Calcium (Lipitor) 40 mg PO HS [facility] Last Admin: 08/10/16 21:37 Dose: 40 mg Carvedilol (Coreg) 25 mg PO BID [facility] Last Admin: 08/10/16 17:10 Dose: 25 mg Cholecalciferol (Vitamin D) 1,000 iu PO BID [facility] Last Admin: 08/10/16 17:10 Dose: 1,000 iu Clopidogrel Bisulfate (Plavix) 75 mg PO DAILY [facility] Last Admin: 08/10/16 09:19 Dose: 75 mg Home Med (Home Med) 1 unit OD HS [facility] Last Admin: 08/10/16 21:37 Dose: 1 unit Home Med (Home Med) 1 unit OD BID [facility] Last Admin: 08/10/16 17:10 Dose: 1 unit Insulin Human Lispro (Humalog Med) 0 units SC [facility] PRN Reason: Protocol Last Admin: 08/10/16 21:45 Dose: Not Given Lisinopril (Zestril) 40 mg PO DAILY [facility] Last Admin: 08/10/16 09:20 Dose: 40 mg Metformin HCl (Glucophage) 500 mg PO BID [facility] Last Admin: 08/08/16 18:37 Dose: 500 mg Non-Formulary Medication (Multivit-Min/Fa/Lycopen/Lutein [Centrum Silver Tablet] ) 1 tab PO DAILY [facility] Last Admin: 08/10/16 09:21 Dose: Not Given Pantoprazole Sodium (Protonix Ec Tab) 40 mg PO ACB [facility] Last Admin: 08/10/16 07:56 Dose: 40 mg Polyethylene Glycol (Miralax) 17 gm PO BID [facility] Last Admin: 08/10/16 17:09 Dose: 17 gm Sitagliptin Phosphate (Januvia) 100 mg PO DAILY [facility] Last Admin: 08/10/16 09:20 Dose: 100 mg - Labs Labs: PT 10.8 Seconds (9.9-11.8) 08/06/16 10:15 INR 1.00 (0.93-1.08) 08/06/16 10:15 APTT 25.5 Seconds (23.7-30.8) 08/06/16 10:15 Assessment and Plan - Assessment and Plan (Free Text) Plan: Assessment: Chest Pain Nuclear stress test suspicious for apical ischemia. CAD/Remote PCIs Suhail Salinas Diabetes HBP Glaucoma Cataracts Confusion Plan: Cardiac cath/possible PCI tomorrow. OOB as tolerated.
[2016-08-11] MEDS: Pantoprazole 40 mg EC Tab PO SCH (08:05)
[2016-08-11] MEDS: Insulin Lispro (humaLOG) MEDIUM Coverage SC SCH ×4 (08:08→22:45)
[2016-08-11] MEDS: OPTH OD SCH ×3 (09:28→21:27)
[2016-08-11] MEDS: POLYETHYLENE GLYCOL 3350 17 GM/Dose PACKET PO SCH ×2 (09:28→17:32)
[2016-08-11] MEDS: COMBIGAN OD SCH ×2 (09:28→17:33)
[2016-08-11] MEDS: Non Formulary Medication (Multivit-Min/Fa/Lycopen/Lutein [Centrum Silver Tablet] 1 TAB) PO SCH (09:29)
--- NOTE | 2016-08-11 11:04 | PN ---
DATE: 08/11/2016 SUBJECTIVE: The patient says she has epigastric discomfort. She is complaining of reflux symptoms. She did say that she did have a good bowel movement. She has no complaints of any headaches or dizz iness. PHYSICAL EXAMINATION: VITAL SIGNS: Temperature is 98.2, pulse 69, blood pressure 110/54, respirations 20. GENERAL: Patient lying in bed, flat, and in no apparent distress. HEAD AND NECK EXAM: Atraumatic, normocephalic. Conjunctivae are pink. Throat clear and mouth with moist mucosa. Oropharynx benign. EYES: Extraocular movements are intact. PERRLA. NECK: Supple. No JVD, thyromegaly, or adenopathy. No bruits. HEART: S1 and S2 regular rate and rhythm. No murmurs, rubs, or gallops. LUNGS: Clear to auscultation bilaterally. No wheezing rales or rhonchi appreciated. No retraction s on exam. ABDOMEN: Soft, nontender, nondistended. Bowel sounds are positive in all quadrants. No rebound. No hepatosplenomegaly. EXTREMITIES: No cyanosis, clubbing, or edema. NEURO: No facial asymmetry, tongue is midline, no uvula deviation. Power is 5/5 in upper extremity and 5/5 in lower extremity. Sensation is normal in upper extremity and lower extremity. PSYCH: Awake, alert, oriented x3. No anxiety or depression symptoms. Good insight. Normal affec t. : No CVA tenderness VASCULAR: 2+ pulses in carotid and pedal pulses. SKIN: No erythema or abnormal nodules noted. SPINE: Normal curvature. LYMPHADENOPATHY: No anterior cervical or posterior cervical adenopathy. No inguinal adenopathy. ASSESSMENT: 1. Chest pain with positive stress test going for catheterization tomorrow. 2. Coronary artery disease. 3. Hypertension. 4. Glaucoma. 5. Dyslipidemia. 6. Constipation. 7. Hypertension. PLAN: The patient is currently comfortable, is on metformin for diabetes. This has been placed on h old. The patient is on aspirin. She is going to continue with Januvia for the diabetes. The patien t is on amlodipine for hypertension. She is going to be on Protonix. The patient is on lisinopril f or hypertension as well. Joshua Bhagat MD cc: [id number] TT: 08/11/2016 11:03:36 Confirmation # [id number] Dictation # [id number]
[2016-08-11] MEDS: TRAVATAN Z 0.004% OD SCH (21:27)
[2016-08-12 06:01] VITALS: O2SAT 99
[2016-08-12] MEDS: Pantoprazole 40 mg EC Tab PO SCH (07:59)
[2016-08-12] MEDS: Insulin Lispro (humaLOG) MEDIUM Coverage SC SCH ×4 (08:00→23:02)
--- NOTE | 2016-08-12 08:04 | CP.PCM.PN ---
Subjective - Date & Time of Evaluation Date of Evaluation: 08/12/16 Time of Evaluation: 07:00 - Subjective Subjective: Stable on 2R. No CP ior SOB V/S noted PE: Lungs: clear Cor.: S1S2, sys. murmur Abd.: soft Ext.: no edema Neuro.: alert Labs noted. All trops neg. FSBS's noted Nuclear stress test: Suspicious for apical ischemia Objective - Vital Signs/Intake and Output Vital Signs (last 24 hours): Temp Pulse Resp BP Pulse Ox 98.3 F 73 18 135/72 99 08/12/16 06:00 08/12/16 06:00 08/12/16 06:00 08/12/16 06:00 08/12/16 06:00 Intake and Output: 08/12/16 08/12/16 06:59 18:59 Intake Total 0 Output Total 0 Balance 0 - Medications Medications: Current Medications Acetaminophen (Tylenol 325mg Tab) 650 mg PO Q6H PRN PRN Reason: Fever >100.4 F Last Admin: 08/10/16 21:36 Dose: 650 mg Amlodipine Besylate (Norvasc) 5 mg PO DAILY [facility] Last Admin: 08/11/16 09:29 Dose: 5 mg Aspirin (Ecotrin) 81 mg PO DAILY [facility] Last Admin: 08/11/16 09:27 Dose: 81 mg Atorvastatin Calcium (Lipitor) 40 mg PO HS [facility] Last Admin: 08/11/16 21:27 Dose: 40 mg Carvedilol (Coreg) 25 mg PO BID [facility] Last Admin: 08/11/16 17:32 Dose: 25 mg Cholecalciferol (Vitamin D) 1,000 iu PO BID [facility] Last Admin: 08/11/16 17:32 Dose: 1,000 iu Clopidogrel Bisulfate (Plavix) 75 mg PO DAILY [facility] Last Admin: 08/11/16 09:27 Dose: 75 mg Home Med (Home Med) 1 unit OD HS [facility] Last Admin: 08/11/16 21:27 Dose: 1 unit Home Med (Home Med) 1 unit OD BID [facility] Last Admin: 08/11/16 17:33 Dose: 1 unit Insulin Human Lispro (Humalog Med) 0 units SC [facility] PRN Reason: Protocol Last Admin: 08/11/16 22:45 Dose: Not Given Lisinopril (Zestril) 40 mg PO DAILY [facility] Last Admin: 08/11/16 09:27 Dose: 40 mg Metformin HCl (Glucophage) 500 mg PO BID [facility] Last Admin: 08/08/16 18:37 Dose: 500 mg Non-Formulary Medication (Multivit-Min/Fa/Lycopen/Lutein [Centrum Silver Tablet] ) 1 tab PO DAILY [facility] Last Admin: 08/11/16 09:29 Dose: Not Given Pantoprazole Sodium (Protonix Ec Tab) 40 mg PO ACB [facility] Last Admin: 08/11/16 08:05 Dose: 40 mg Polyethylene Glycol (Miralax) 17 gm PO BID [facility] Last Admin: 08/11/16 17:32 Dose: 17 gm Sitagliptin Phosphate (Januvia) 100 mg PO DAILY [facility] Last Admin: 08/11/16 09:27 Dose: 100 mg Zolpidem Tartrate (Ambien) 5 mg PO HS PRN; Protocol PRN Reason: Insomnia Last Admin: 08/11/16 22:45 Dose: 5 mg - Labs Labs: PT 10.8 Seconds (9.9-11.8) 08/06/16 10:15 INR 1.00 (0.93-1.08) 08/06/16 10:15 APTT 25.5 Seconds (23.7-30.8) 08/06/16 10:15 Assessment and Plan - Assessment and Plan (Free Text) Plan: Assessment: Chest Pain Nuclear stress test suspicious for apical ischemia. CAD/Remote PCIs Suhail Salinas Diabetes HBP Glaucoma Cataracts Confusion Plan: Cardiac cath/possible PCI later today. Additional recommendations to follow. OOB as tolerated.
[2016-08-12] MEDS: POLYETHYLENE GLYCOL 3350 17 GM/Dose PACKET PO SCH ×2 (10:08→17:55)
[2016-08-12] MEDS: OPTH OD SCH ×3 (10:15→22:25)
[2016-08-12] MEDS: COMBIGAN OD SCH ×2 (10:15→17:54)
[2016-08-12] MEDS: Non Formulary Medication (Multivit-Min/Fa/Lycopen/Lutein [Centrum Silver Tablet] 1 TAB) PO SCH (10:17)
--- NOTE | 2016-08-12 10:59 | PN ---
DATE: 08/12/2016 An 81-year-old black female with history of hypertension, CAD, status post stent in 2008. The patien t had a positive stress test. For catheterization today. Vital signs are stable. REVIEW OF SYSTEMS: A 12-point is unremarkable. There is no chest pain today. PHYSICAL EXAMINATION: Unchanged. GENERAL: The patient is awake, alert, oriented x 3. NEUROLOGIC: Grossly intact. CHEST: Clear to auscultation. HEART: Regular sinus rhythm. Abilio Brown MD cc: [id number] TT: 08/12/2016 10:59:29 Confirmation # [id number] Dictation # [id number]
[2016-08-12] MEDS ORDERED: Iodixanol 320 MG/ML 200 ML BOTTLE IV ONE (15:30)
[2016-08-12] MEDS ORDERED: Lidocaine 2% Inj (20ml) ONE (15:30)
[2016-08-12] MEDS ORDERED: Midazolam 2 MG/2 ML VIAL ONE (16:02)
[2016-08-12] MEDS ORDERED: Iohexol 350mgl/ml 50 ML ONE (16:03)
[2016-08-12] MEDS ORDERED: Oxycodone/Acetaminophen 2.5/325 mg Tab PO STA (17:58)
--- NOTE | 2016-08-12 20:14 | CARDCATH ---
PROCEDURE DATE: 08/12/2016 HISTORY: This is an 81-year-old woman with known coronary disease, status post prior PCI, who was ad mitted with chest pain. Stress test was performed showing mild apical ischemia and cardiac catheteri zation was recommended. INDICATION: As above. FINDINGS: HEMODYNAMICS: The aortic pressure was 144/70 with left ventricular pressure of 140/16. CORONARY ANATOMY: 1. The left main stem was normal. 2. The left anterior descending artery and its branches had mild irregularities. 3. The left circumflex artery had a widely patent stent in its midportion. 4. The first obtuse marginal branch had a mild 40% ostial stenosis. 5. The coronary circulation was codominant. 6. The right coronary artery was fairly small and with minimal irregularities. LEFT VENTRICULOGRAPHY: A hand injection was performed in the left ventricle in the DURAN protection. This revealed normal wall motion and ejection fraction of 65%. RIGHT FEMORAL ARTERIOGRAPHY: Right femoral arteriogram was performed in the DURAN injection. This rev ealed no evidence of significant disease. The level of arterial puncture was appropriate. This was then closed with deployment of an Angio-Seal device. CONCLUSION: 1. Patent left circumflex artery stent. 2. Mild coronary artery disease. 3. Normal LV function. RECOMMENDATIONS: Continue risk factor control and medical therapy are advised. Chas Levin MD cc: [id number] TT: 08/12/2016 20:13:35 rene
[2016-08-12] MEDS: TRAVATAN Z 0.004% OD SCH (22:25)
[2016-08-13 00:52] VITALS: TEMP 98.2
[2016-08-13] MEDS: Insulin Lispro (humaLOG) MEDIUM Coverage SC SCH (07:56)
--- NOTE | 2016-08-13 08:07 | CP.PCM.PN ---
Subjective - Date & Time of Evaluation Date of Evaluation: 08/13/16 Time of Evaluation: 07:00 - Subjective Subjective: Stable on 2R. No CP ior SOB. S/P cath 08/12 Patent C.A. stent. No obstructive CAD - see report. V/S noted PE: Lungs: clear Cor.: S1S2, sys. murmur Abd.: soft Ext.: no edema Neuro.: alert Nuclear stress test: Suspicious for apical ischemia Objective - Vital Signs/Intake and Output Vital Signs (last 24 hours): Temp Pulse Resp BP Pulse Ox 98.2 F 74 20 102/38 L 99 08/12/16 23:59 08/13/16 06:00 08/12/16 23:59 08/12/16 23:59 08/12/16 06:00 Intake and Output: 08/13/16 08/13/16 06:59 18:59 Intake Total 620 Balance 620 - Medications Medications: Current Medications Acetaminophen (Tylenol 325mg Tab) 650 mg PO Q6H PRN PRN Reason: Fever >100.4 F Last Admin: 08/13/16 02:22 Dose: 650 mg Amlodipine Besylate (Norvasc) 5 mg PO DAILY [facility] Last Admin: 08/12/16 10:06 Dose: 5 mg Aspirin (Ecotrin) 81 mg PO DAILY [facility] Last Admin: 08/12/16 10:08 Dose: 81 mg Atorvastatin Calcium (Lipitor) 40 mg PO HS [facility] Last Admin: 08/12/16 22:24 Dose: 40 mg Carvedilol (Coreg) 25 mg PO BID [facility] Last Admin: 08/12/16 17:54 Dose: 25 mg Cholecalciferol (Vitamin D) 1,000 iu PO BID [facility] Last Admin: 08/12/16 17:54 Dose: 1,000 iu Home Med (Home Med) 1 unit OD [facility] Last Admin: 08/12/16 22:25 Dose: 1 unit Home Med (Home Med) 1 unit OD BID [facility] Last Admin: 08/12/16 17:54 Dose: 1 unit Insulin Human Lispro (Humalog Med) 0 units SC [facility] PRN Reason: Protocol Last Admin: 08/13/16 07:56 Dose: Not Given Lisinopril (Zestril) 40 mg PO DAILY [facility] Last Admin: 08/12/16 10:08 Dose: 40 mg Metformin HCl (Glucophage) 500 mg PO BID [facility] Last Admin: 08/08/16 18:37 Dose: 500 mg Non-Formulary Medication (Multivit-Min/Fa/Lycopen/Lutein [Centrum Silver Tablet] ) 1 tab PO DAILY [facility] Last Admin: 08/12/16 10:17 Dose: Not Given Pantoprazole Sodium (Protonix Ec Tab) 40 mg PO ACB [facility] Last Admin: 08/12/16 07:59 Dose: 40 mg Polyethylene Glycol (Miralax) 17 gm PO BID [facility] Last Admin: 08/12/16 17:55 Dose: Not Given Sitagliptin Phosphate (Januvia) 100 mg PO DAILY [facility] Last Admin: 08/11/16 09:27 Dose: 100 mg Zolpidem Tartrate (Ambien) 5 mg PO HS PRN; Protocol PRN Reason: Insomnia Last Admin: 08/11/16 22:45 Dose: 5 mg - Labs Labs: PT 10.8 Seconds (9.9-11.8) 08/06/16 10:15 INR 1.00 (0.93-1.08) 08/06/16 10:15 APTT 25.5 Seconds (23.7-30.8) 08/06/16 10:15 Assessment and Plan - Assessment and Plan (Free Text) Plan: Assessment: Chest Pain Nuclear stress test suspicious for apical ischemia. CAD/Remote PCIs Suhail Salinas. Patent stent in C.A. and no obstructive CAD> med. tx. Diabetes HBP Glaucoma Cataracts Confusion Plan: OOB as tolerated. D/C home. Hold metformin until tomorrow. Out-pt f/u
[2016-08-13] MEDS: Pantoprazole 40 mg EC Tab PO SCH (08:12)
[2016-08-13 09:03] VITALS: BP 130/71; PULSE 79; RESP 18
[2016-08-13] MEDS: POLYETHYLENE GLYCOL 3350 17 GM/Dose PACKET PO SCH (09:20)
[2016-08-13] MEDS: COMBIGAN OD SCH (09:21)
[2016-08-13] MEDS: OPTH OD SCH (09:21)
--- NOTE | 2016-08-13 16:42 | DS ---
An 81-year-old black female with a history of stent, CAD, hypertension, glaucoma, legally blind. The patient was admitted to the hospital with chest pain and shortness of breath, was found to have a po sitive stress test. The patient had a current cardiac catheterization that showed a wide patent sten t with mild coronary disease with relegated to medical treatment only. The patient will be discharged home in improved condition to follow up with quarter trimmer and myself as an outpatient. She will continue medications and will be followed as an outpatient. FINAL DISCHARGE DIAGNOSES: Coronary artery disease, stable angina, hypertension and glaucoma. Abilio Brown MD cc: [id number] TT: 08/13/2016 16:42:20 ln
== END 2016-08-13 10:48 | disposition home or self-care (01) | DRG 287 ==
LOC: ED 10:00 → ERH 12:08 → 2RNO 14:51 → OBSVTOIN 08-09 16:28 → 2RSO 08-12 17:39
PROVIDERS: ADMIT Internal Medicine; ATTEND Internal Medicine
PROC: 4A023N7 Measurement of Cardiac Sampling and Pressure, Left Heart, Percutaneous Approach (ICD-10-PCS; principal; 2016-08-12)
PROC: B2111ZZ Fluoroscopy of Multiple Coronary Arteries using Low Osmolar Contrast (ICD-10-PCS; 2016-08-12)
PROC: B2151ZZ Fluoroscopy of Left Heart using Low Osmolar Contrast (ICD-10-PCS; 2016-08-12)
DX: I25.118 Atherosclerotic heart disease of native coronary artery with other forms of angina pectoris (principal); E11.9 Type 2 diabetes mellitus without complications; I10 Essential (primary) hypertension; K27.9 Peptic ulcer, site unspecified, unspecified as acute or chronic, without hemorrhage or perforation; K59.00 Constipation, unspecified; H40.9 Unspecified glaucoma; E78.5 Hyperlipidemia, unspecified; H26.9 Unspecified cataract; R51 Headache; R41.0 Disorientation, unspecified; H54.8 Legal blindness, as defined in USA; Z79.82 Long term (current) use of aspirin; Z79.84 Long term (current) use of oral hypoglycemic drugs; Z95.5 Presence of coronary angioplasty implant and graft

== ENCOUNTER 2017-08-21 19:14 | Emergency (ER) | payer MEDICARE, OTHER ==
[2017-08-21 19:44] VITALS: BMI 28.8
[2017-08-21 19:48] VITALS: TEMP 98.8
[2017-08-21] MEDS ORDERED: Morphine 2 mg/ml ISec IVP STA ×2 (19:49→19:50)
[2017-08-21] MEDS ORDERED: Iohexol 240 (50 ml) ONE (19:55)
--- NOTE | 2017-08-21 20:09 | ED PDOC ---
Arrival/HPI - General Chief Complaint: Abdominal Pain Time Seen by Provider: 08/21/17 19:35 Historian: Patient - History of Present Illness Narrative History of Present Illness (Text): 08/21/17 19:48 82 year old female presents to the Emergency department complaining of intermittent epigastric pain that radiates to the back that began approximately 2 weeks ago. Patient was started on antibiotics by PMD for possible diverticulitis. Patient reports eating a sandwich 3 hours ago and her pain increased. Patient denies any fever, chills, chest pain, shortness of breath, nausea, vomiting, diarrhea, urinary symptoms, neck pain, headache, dizziness, or any other complaints. Time/Duration: < month (2 weeks) Symptom Onset: Gradual Symptom Course: Unchanged, Intermittent Context: Home Past Medical History - Provider Review Nursing Documentation Reviewed: Yes - Infectious Disease Hx of Infectious Diseases: None - Cardiac Hx Cardiac Disorders: Yes Hx Hypertension: Yes - Pulmonary Hx Respiratory Disorders: Yes Hx Bronchitis: Yes - Neurological Hx Neurological Disorder: Yes Hx Dizziness: Yes - HEENT Hx HEENT Disorder: Yes Hx Cataracts: Yes (with surgery) Hx Glaucoma: Yes - Renal Hx Renal Disorder: No - Endocrine/Metabolic Hx Endocrine Disorders: Yes Hx Diabetes Mellitus Type 2: Yes - Hematological/Oncological Hx Blood Transfusions: No Hx Blood Transfusion Reaction: No - Integumentary Hx Dermatological Disorder: Yes (LEFT BREAST BX-BENIGN) - Musculoskeletal/Rheumatological Hx Musculoskeletal Disorders: No Hx Falls: Yes - Gastrointestinal Hx Gastrointestinal Disorders: Yes Hx Diverticulitis: Yes Hx Gastroesophageal Reflux: Yes Other/Comment: Appendicitis. - Genitourinary/Gynecological Hx Genitourinary Disorders: Yes (L BREAST BX-BENIGN.) - Psychiatric Hx Emotional Abuse: No Hx Physical Abuse: No Hx Substance Use: No - Surgical History Hx Appendectomy: Yes (since 13 y/o) - Anesthesia Hx Anesthesia Reactions: No Hx Malignant Hyperthermia: No - Suicidal Assessment Feels Threatened In Home Enviroment: No Family/Social History - Physician Review Nursing Documentation Reviewed: Yes Family/Social History: Unknown Family HX Smoking Status: Former Smoker Hx Alcohol Use: No Hx Substance Use: No Allergies/Home Meds Allergies/Adverse Reactions: Allergies No Known Allergies Allergy (Verified 08/21/17 19:44) Home Medications: Home Meds Medication Instructions Recorded Confirmed Atorvastatin [Lipitor] 40 mg PO HS 11/10/14 08/21/17 Carvedilol [Coreg] 25 mg PO BID 11/10/14 08/21/17 Cholecalciferol [Vitamin D 1000 IU] 1,000 iu PO BID 11/10/14 08/21/17 Esomeprazole Magnesium [Nexium] 40 mg PO DAILY 11/10/14 08/21/17 Lisinopril [Zestril] 40 mg PO DAILY 06/23/16 08/21/17 SITagliptin [Januvia] 100 mg PO DAILY 06/23/16 08/21/17 amLODIPine [Norvasc] 5 mg PO DAILY 06/23/16 08/21/17 metFORMIN [glucOPHAGE] 500 mg PO BID 06/23/16 08/21/17 Aspirin [[place] Aspirin] 81 mg PO DAILY 07/12/16 08/21/17 Multivit-Min/FA/Lycopen/Lutein 1 tab PO DAILY 07/17/16 08/21/17 [Centrum Silver Tablet] Polyethylene Glycol 3350 [Miralax] 17 gm PO BID 08/06/16 08/21/17 Review of Systems - Physician Review All systems were reviewed & negative as marked: Yes - Review of Systems Constitutional: absent: Fevers, Night Sweats Respiratory: absent: SOB Cardiovascular: absent: Chest Pain Gastrointestinal: Abdominal Pain. absent: Diarrhea, Nausea, Vomiting Genitourinary Female: absent: Dysuria Musculoskeletal: absent: Neck Pain Neurological: absent: Headache, Dizziness Physical Exam Vital Signs Reviewed: Yes Vital Signs Temp Pulse Resp BP Pulse Ox 08/22/17 03:45 68 20 97 08/21/17 20:52 63 16 141/86 98 08/21/17 19:45 98.8 F 109 H 20 173/95 H 100 Temperature: Afebrile Blood Pressure: Hypertensive Pulse: Tachycardic Respiratory Rate: Normal Appearance: Positive for: Well-Appearing, Non-Toxic, Comfortable Pain Distress: None Mental Status: Positive for: Alert and Oriented X 3 - Systems Exam Head: Present: Atraumatic, Normocephalic Pupils: Present: PERRL Extroacular Muscles: Present: EOMI Conjunctiva: Present: Normal Mouth: Present: Moist Mucous Membranes Neck: Present: Normal Range of Motion Respiratory/Chest: Present: Clear to Auscultation, Good Air Exchange. No: Respiratory Distress, Accessory Muscle Use Cardiovascular: Present: Regular Rate and Rhythm, Normal S1, S2. No: Murmurs Abdomen: Present: Other (No Carrillo's sign). No: Tenderness, Distention, Peritoneal Signs, Rebound, Guarding, McBur[place]'s Point Tender Back: Present: Normal Inspection Upper Extremity: Present: Normal Inspection. No: Cyanosis, Edema Lower Extremity: Present: Normal Inspection. No: Edema Neurological: Present: GCS=15, CN II-XII Intact, Speech Normal Skin: Present: Warm, Dry, Normal Color. No: Rashes Psychiatric: Present: Alert, Oriented x 3, Normal Insight, Normal Concentration Medical Decision Making ED Course and Treatment: 08/21/17 20:13 Impression: 82 year old female presents to the Emergency department complaining of intermittent epigastric pain for 2 weeks. Differential Diagnosis included but are not limited to: cholelithiasis vs. cholecystitis Plan: -- CT scan of abdomen and pelvis -- US of abdomen -- Urine culture -- Urinalysis -- Labs -- Morphine, Zofran -- Reassess and disposition Prior Visits: Notes and results from previous visits were reviewed. Patient was last seen in the emergency department on 08/06/16, was diagnosed with chest pain, and was admitted to the hospital. Progress Notes: 08/21/17 21:42 Patient signed out to Dr. Mitchell at this time. Pending CT, US, and urinalysis. - Lab Interpretations Lab Results: 08/21/17 20:12 08/21/17 20:37 Lab Results 08/22/17 02:29: Troponin I < 0.01 08/22/17 00:42: POC Glucose (mg/dL) 92 08/21/17 23:12: Urine Color Yellow, Urine Appearance Sl cloudy, Urine pH 7.0, Ur Specific [place] 1.010, Urine Protein Negative, Urine Glucose (UA) Negative, Urine Ketones Negative, Urine Blood Negative, Urine Nitrate Negative, Urine Bilirubin Negative, Urine Urobilinogen 0.2, Ur Leukocyte Esterase Moderate H, Urine RBC 0 - 2, Urine WBC 5 - 10, Ur Epithelial Cells 3 - 4, Urine Bacteria Few 08/21/17 20:37: Sodium 142, Potassium 3.8, Chloride 104, Carbon Dioxide 26, Anion Gap 15, BUN 13, Creatinine 0.8, Est GFR ( Amer) > 60, Est GFR (Non- Af Amer) > 60, Random Glucose 129 H, Calcium 10.2, Total Bilirubin 0.2, AST 37 H , ALT 47, Alkaline Phosphatase 61, Total Protein 7.1, Albumin 3.8, Globulin 3.3 , Albumin/Globulin Ratio 1.2, Lipase 62 08/21/17 20:37: PT 11.5, INR 1.01 08/21/17 20:12: WBC 8.2 D, RBC 4.83, Hgb 13.3, Hct 40.1, MCV 83.0, MCH 27.5, MCHC 33.2, RDW 15.0 H, Plt Count 238, MPV 10.9, Gran % 57.7, Lymph % (Auto) 26.9 , [place] % (Auto) 13.4 H, Eos % (Auto) 1.9, Baso % (Auto) 0.1, Gran # 4.73, Lymph # (Auto) 2.2, [place] # (Auto) 1.1 H, Eos # (Auto) 0.2, Baso # (Auto) 0.01 08/21/17 19:40: POC Glucose (mg/dL) 116 H - RAD Interpretation Radiology Orders: 08/21/17 19:49 ABD PELVIS PO & IV CONTRAST [CT] Stat ABDOMEN COMPLETE [US] Stat - Medication Orders Current Medication Orders: Discontinued Medications Dicyclomine HCl (Bentyl) 10 mg PO ONCE ONE Stop: 08/22/17 01:12 Last Admin: 08/22/17 01:33 Dose: 10 mg Morphine Sulfate (Morphine) 2 mg IVP STAT STA Stop: 08/21/17 19:50 Morphine Sulfate (Morphine) 2 mg IVP STAT STA Stop: 08/21/17 19:51 Last Admin: 08/21/17 20:14 Dose: 2 mg MAR Pain Assessment Document 08/21/17 20:14 SS (Rec: 08/21/17 20:14 [email or web address] Pain Reassessment Is this a pain reassessment? No Sleep Is patient sleeping during reassessment? No Presence of Pain Presence of Pain Yes Pain Scale Used Pain Scale Used Numeric Location Upper or Lower Upper Pain Location Body Site Abdomen Description Description Constant Pain Behavior Rubbing Site IVP Administration Document 08/21/17 20:14 SS (Rec: 08/21/17 20:14 [email or web address] Charges for Administration # of IVP Administrations 1 Ondansetron HCl (Zofran Inj) 8 mg IVP STAT STA Stop: 08/21/17 19:50 Last Admin: 08/21/17 20:13 Dose: 8 mg IVP Administration Document 08/21/17 20:13 SS (Rec: 08/21/17 20:14 [id number] Charges for Administration # of IVP Administrations 1 - Scribe Statement The provider has reviewed the documentation as recorded by the Scribe Benny Phelan All medical record entries made by the Scribe were at my direction and personally dictated by me. I have reviewed the chart and agree that the record accurately reflects my personal performance of the history, physical exam, medical decision making, and the department course for this patient. I have also personally directed, reviewed, and agree with the discharge instructions and disposition. Disposition/Present on Arrival - Present on Arrival Any Indicators Present on Arrival: No History of DVT/PE: No History of Uncontrolled Diabetes: No Urinary Catheter: No History of Decub. Ulcer: No History Surgical Site Infection Following: None - Disposition Have Diagnosis and Disposition been Completed?: Yes Diagnosis: Abdominal pain, UTI (urinary tract infection) Disposition: HOME/ ROUTINE Disposition Time: 15:02 Patient Plan: Admission Condition: IMPROVED Discharge Instructions (ExitCare): Acute Abdomen (Belly Pain) Additional Instructions: you had a mild urinary tract infection. this should be taken care of by the antibiotics. Referrals: Abilio Brown MD [Primary Care Provider] - 08/25/17 Forms: [employer] (Kiswahili)
[2017-08-21 20:27] LABS: BASO # 0.01 K/mm3 (0.0-2.0); BASO % 0.1 % (0.0-3.0); EOS # 0.2 (0.0-0.7); EOS % 1.9 % (1.5-5.0); GRAN # 4.73 (1.4-6.5); GRAN % 57.7 % (50.0-68.0); HEMOGLOBIN 13.3 g/dL (12.0-16.0); LYMPH # 2.2 (1.2-3.4); LYMPH % 26.9 % (22.0-35.0); MEAN CORPUSCULAR HEMOGLOBIN 27.5 pg (25.0-35.0); MEAN CORPUSCULAR HGB CONC 33.2 g/dl (31.0-37.0); MEAN PLATELET VOLUME 10.9 fl (7.0-11.0); MONO # 1.1 (0.1-0.6); MONO % 13.4 % (1.0-6.0); RBC 4.83 10^6/uL (3.5-6.1); WHITE BLOOD COUNT 8.2 10^3/ul (4.5-11.0)
[2017-08-21 20:52] VITALS: BP 141/86
[2017-08-21 20:57] LABS: ALB/GLOB RATIO 1.2 (1.1-1.8); ALBUMIN 3.8 g/dL (3.0-4.8); ALT/SGPT 47 U/L (7-56); AST/SGOT 37 U/L (14-36); BLOOD UREA NITROGEN 13 mg/dL (7-21); CALCIUM 10.2 mg/dL (8.4-10.5); GFR AFRICAN-AMERICAN > 60; GFR NON-AFRICAN AMERICAN > 60; LIPASE 62 U/L (23-300)
[2017-08-21 21:10] LABS: INR 1.01 (0.93-1.08); PROTHROMBIN TIME 11.5 SECONDS (9.4-12.5)
--- NOTE | 2017-08-21 21:51 | ED PDOC ---
Physical Exam Vital Signs Reviewed: Yes Vital Signs Temp Pulse Resp BP Pulse Ox 08/21/17 20:52 63 16 141/86 98 08/21/17 19:45 98.8 F 109 H 20 173/95 H 100 Temperature: Afebrile Respiratory Rate: Normal Appearance: Positive for: Well-Appearing, Non-Toxic, Comfortable Mental Status: Positive for: Alert and Oriented X 3 Medical Decision Making ED Course and Treatment: 08/21/17 21:50 Patient signed out to me by Dr. Lance pending imaging studies and urinalysis. 08/22/17 00:31 Urinalysis reviewed, indicates mild/moderate leukocytes; 5-10 RBC's Ambiguous urinalysis results, will treat patient if she is symptomatic. 08/22/17 00:39 On re-evaluation, patient reports some urinary frequency. She states she is on an antibiotics course for diverticulitis, likely Cippro which cover's possible UTI. 08/22/17 02:29 Patient reports epigastric abdominal pain, troponin ordered. 08/22/17 03:56 labs reviewed, troponin levels within normal limits. Patient stable for discharge home. - Lab Interpretations Lab Results: 08/21/17 20:12 08/21/17 20:37 Lab Results 08/22/17 02:29: Troponin I < 0.01 08/21/17 23:12: Urine Color Yellow, Urine Appearance Sl cloudy, Urine pH 7.0, Ur Specific [place] 1.010, Urine Protein Negative, Urine Glucose (UA) Negative, Urine Ketones Negative, Urine Blood Negative, Urine Nitrate Negative, Urine Bilirubin Negative, Urine Urobilinogen 0.2, Ur Leukocyte Esterase Moderate H, Urine RBC 0 - 2, Urine WBC 5 - 10, Ur Epithelial Cells 3 - 4, Urine Bacteria Few 08/21/17 20:37: Sodium 142, Potassium 3.8, Chloride 104, Carbon Dioxide 26, Anion Gap 15, BUN 13, Creatinine 0.8, Est GFR ( Amer) > 60, Est GFR (Non- Af Amer) > 60, Random Glucose 129 H, Calcium 10.2, Total Bilirubin 0.2, AST 37 H , ALT 47, Alkaline Phosphatase 61, Total Protein 7.1, Albumin 3.8, Globulin 3.3 , Albumin/Globulin Ratio 1.2, Lipase 62 08/21/17 20:37: PT 11.5, INR 1.01 08/21/17 20:12: WBC 8.2 D, RBC 4.83, Hgb 13.3, Hct 40.1, MCV 83.0, MCH 27.5, MCHC 33.2, RDW 15.0 H, Plt Count 238, MPV 10.9, Gran % 57.7, Lymph % (Auto) 26.9 , [place] % (Auto) 13.4 H, Eos % (Auto) 1.9, Baso % (Auto) 0.1, Gran # 4.73, Lymph # (Auto) 2.2, [place] # (Auto) 1.1 H, Eos # (Auto) 0.2, Baso # (Auto) 0.01 08/21/17 19:40: POC Glucose (mg/dL) 116 H - RAD Interpretation Narrative RAD Interpretations (Text): 08/21/17 23:29 US Abdomen FINDINGS: LIVER: Liver is echogenic suggestive of fatty infiltration. No intrahepatic bile duct dilation. GALLBLADDER: Unremarkable. No gallstones. COMMON BILE DUCT: Unremarkable as visualized. No stones. No dilation. PANCREAS: Unremarkable as visualized. KIDNEYS: Mild left hydronephrosis/hydroureter. No stones. SPLEEN: Unremarkable. No splenomegaly. IMPRESSION: 1. Liver is echogenic suggestive of fatty infiltration. 2. Mild left hydronephrosis/hydroureter. 08/22/17 01:23 CT Abdomen/Pelvis FINDINGS: Artifacts: Limited due to motion and misregistration artifacts. Lung bases: There is bibasilar atelectasis. Heart: Cardiomegaly. Mediastinum: Possible small hiatal hernia. ABDOMEN: Liver: Fatty liver. Gallbladder and bile ducts: Partially contracted gallbladder. Pancreas: Unremarkable. No mass. No ductal dilation. Spleen: Unremarkable. No splenomegaly. Adrenals: Unremarkable. No mass. Kidneys and ureters: There is bilateral extrarenal pelvis and left more than right distention of the extrarenal pelvis without evidence of ureteral stones. No hydronephrosis. Stomach and bowel: Diverticulosis. No obstruction. No mucosal thickening. PELVIS: Appendix: Appendectomy. Bladder: Bladder distention. Correlation with patient's voiding status is recommended. Reproductive: Hysterectomy. ABDOMEN and PELVIS: Intraperitoneal space: Unremarkable. No free air. No significant fluid collection. Bones/joints: Multilevel vacuum degenerative disc disease. No acute fracture. No dislocation. Soft tissues: Unremarkable. Vasculature: Pelvic phleboliths. No abdominal aortic aneurysm. Lymph nodes: Multiple subcentimeter mesenteric and ileocolic lymph nodes. Findings are nonspecific but may represent mesenteric adenitis. IMPRESSION: No acute findings. Radiology Orders: 08/21/17 19:49 ABD PELVIS PO & IV CONTRAST [CT] Stat ABDOMEN COMPLETE [US] Stat - Medication Orders Current Medication Orders: Discontinued Medications Dicyclomine HCl (Bentyl) 10 mg PO ONCE ONE Stop: 08/22/17 01:12 Last Admin: 08/22/17 01:33 Dose: 10 mg Morphine Sulfate (Morphine) 2 mg IVP STAT STA Stop: 08/21/17 19:50 Morphine Sulfate (Morphine) 2 mg IVP STAT STA Stop: 08/21/17 19:51 Last Admin: 08/21/17 20:14 Dose: 2 mg MAR Pain Assessment Document 08/21/17 20:14 SS (Rec: 08/21/17 20:14 SS [place] [id number]) Pain Reassessment Is this a pain reassessment? No Sleep Is patient sleeping during reassessment? No Presence of Pain Presence of Pain Yes Pain Scale Used Pain Scale Used Numeric Location Upper or Lower Upper Pain Location Body Site Abdomen Description Description Constant Pain Behavior Rubbing Site IVP Administration Document 08/21/17 20:14 SS (Rec: 08/21/17 20:14 [email or web address] Charges for Administration # of IVP Administrations 1 Ondansetron HCl (Zofran Inj) 8 mg IVP STAT STA Stop: 08/21/17 19:50 Last Admin: 08/21/17 20:13 Dose: 8 mg IVP Administration Document 08/21/17 20:13 SS (Rec: 08/21/17 20:14 [email or web address] Charges for Administration # of IVP Administrations 1 - Scribe Statement The provider has reviewed the documentation as recorded by the Jah Forrest Provider Scribe Attestation: All medical record entries made by the Scribkirt were at my direction and personally dictated by me. I have reviewed the chart and agree that the record accurately reflects my personal performance of the history, physical exam, medical decision making, and the department course for this patient. I have also personally directed, reviewed, and agree with the discharge instructions and disposition. Disposition/Present on Arrival - Present on Arrival History of DVT/PE: No History of Uncontrolled Diabetes: No Urinary Catheter: No History of Decub. Ulcer: No History Surgical Site Infection Following: None - Disposition Diagnosis: Abdominal pain Disposition: HOME/ ROUTINE Patient Problems: Current Active Problems Problem Status Onset Abdominal pain Acute Condition: IMPROVED Discharge Instructions (ExitCare): Acute Abdomen (Belly Pain) Additional Instructions: you had a mild urinary tract infection. this should be taken care of by the antibiotics. Referrals: Abilio Brown MD [Primary Care Provider] - 08/25/17 Forms: [employer] (Frisian)
[2017-08-21 23:17] LABS: URINE BILIRUBIN NEGATIVE (NEGATIVE); URINE BLOOD NEGATIVE (NEGATIVE); URINE GLUCOSE (UA) NEGATIVE (NEGATIVE); URINE LEUKOCYTE ESTERASE MODERATE Leu/uL (NEGATIVE); URINE PROTEIN NEGATIVE mg/dL (<30 mg/dL); URINE UROBILINOGEN 0.2 E.U./dL (<1 E.U./dL)
[2017-08-21 23:19] LABS: URINE COLOR YELLOW (YELLOW)
[2017-08-21 23:20] LABS: URINE APPEARANCE SL CLOUDY (CLEAR)
[2017-08-21 23:26] LABS: URINE BACTERIA FEW (NEG); URINE RBC 0 - 2 /hpf (0-2)
[2017-08-21] MEDS ORDERED: Iohexol 350 MG/100 ML VIAL ONE (23:38)
[2017-08-22 04:20] VITALS: PULSE 68; RESP 20; O2SAT 97
--- NOTE | 2017-08-22 09:16 | US ---
EXAM: US Abdomen Complete EXAM DATE/TIME: Examination ordered 08/21/2017 7:49 PM. Image number total count reviewed 99 CLINICAL HISTORY: The patient is 82 years old and is female; Pain; Abdominal pain; Colic; Additional info: Biliary colic Facility exam id and description: Us abd abdomen complete TECHNIQUE: Real-time ultrasound of the abdomen (complete) with image documentation. COMPARISON: CT - ABD PELVIS IV CONTRAST ONLY 2016-07-01 16:25 FINDINGS: LIVER: Liver is echogenic suggestive of fatty infiltration. No intrahepatic bile duct dilation. GALLBLADDER: Unremarkable. No gallstones. COMMON BILE DUCT: Unremarkable as visualized. No stones. No dilation. PANCREAS: Unremarkable as visualized. KIDNEYS: Mild left hydronephrosis/hydroureter. No stones. SPLEEN: Unremarkable. No splenomegaly. IMPRESSION: 1. Liver is echogenic suggestive of fatty infiltration. 2. Mild left hydronephrosis/hydroureter.
--- NOTE | 2017-08-22 11:12 | CT ---
PROCEDURE: CT Abdomen and Pelvis with contrast HISTORY: ?Diverticulitis? COMPARISON: None. TECHNIQUE: Contrast dose: 100 cc of Omni 350 Radiation dose: Total exam DLP = 1038 mGy-cm. This CT exam was performed using one or more of the following dose reduction techniques: Automated exposure control, adjustment of the mA and/or kV according to patient size, and/or use of iterative reconstruction technique. FINDINGS: LOWER THORAX: Unremarkable. LIVER: Unremarkable. No gross lesion or ductal dilatation. GALLBLADDER AND BILE DUCTS: Unremarkable. PANCREAS: Unremarkable. No gross lesion or ductal dilatation. SPLEEN: Unremarkable. ADRENALS: Unremarkable. No mass. KIDNEYS AND URETERS: Unremarkable. No hydronephrosis. No solid mass. VASCULATURE: Unremarkable. No aortic aneurysm. BOWEL: Unremarkable. No obstruction. No gross mural thickening. APPENDIX: Normal appendix. PERITONEUM: Unremarkable. No free fluid. No free air. LYMPH NODES: Unremarkable. No enlarged lymph nodes. BLADDER: Unremarkable. REPRODUCTIVE: Unremarkable. BONES: No acute fracture. OTHER FINDINGS: The report concurs with the preliminary [facility] report IMPRESSION: No acute findings
== END 2017-08-22 04:19 | disposition home or self-care (01) ==
LOC: ED 19:14
DX: R10.13 Epigastric pain (principal)
CPT/HCPCS: 74177; 76700; 80053; 81001; 82948; 83690; 84484; 85025; 85610; 87086; 87181; 96374; 96375; 99284; J2270; J2405; Q9966; Q9967

== ENCOUNTER 2018-02-09 22:15 | Emergency (ER) | payer MEDICARE ==
[2018-02-09 22:36] VITALS: TEMP 98.4; BMI 29.0
[2018-02-09] MEDS ORDERED: Sodium Chloride 0.9% 1,000 ML IV STA (22:42)
--- NOTE | 2018-02-09 22:49 | ED PDOC ---
Arrival/HPI - General Historian: Patient - History of Present Illness Narrative History of Present Illness (Text): 02/09/18 22:42 82 year old female, whose past medical history includes diabetes mellitus, CAD, and hypertension presents to the emergency department with epigastric abdominal pain, for about 1 month. Patient states she had a CT done a month ago, which showed a cyst on her kidney, that was thought to be causing her abdominal pain. Patient informs also having endoscopy during the same week, which showed no pathology. Patient also informs having elevated blood pressure at home, which was lowered by medication. Patient denies any fevers, chills, headache, diz ziness, chest pain, shortness of breath, cough, nausea, vomiting, diarrhea, back pain, neck pain, urinary/bowel changes, or any other complaint. PMD: Dr. Brown GI: Dr. Leo Time/Duration: Prior to Arrival, < month Symptom Onset: Gradual Symptom Course: Unchanged Context: Home Past Medical History - Provider Review Nursing Documentation Reviewed: Yes - Infectious Disease Hx of Infectious Diseases: None - Cardiac Hx Cardiac Disorders: Yes Hx Hypertension: Yes - Pulmonary Hx Respiratory Disorders: Yes Hx Bronchitis: Yes - Neurological Hx Neurological Disorder: Yes Hx Dizziness: Yes - HEENT Hx HEENT Disorder: Yes Hx Cataracts: Yes (with surgery) Hx Glaucoma: Yes - Renal Hx Renal Disorder: No - Endocrine/Metabolic Hx Endocrine Disorders: Yes Hx Diabetes Mellitus Type 2: Yes - Hematological/Oncological Hx Blood Transfusions: No Hx Blood Transfusion Reaction: No - Integumentary Hx Dermatological Disorder: Yes (LEFT BREAST BX-BENIGN) - Musculoskeletal/Rheumatological Hx Musculoskeletal Disorders: No Hx Falls: Yes - Gastrointestinal Hx Gastrointestinal Disorders: Yes Hx Diverticulitis: Yes Hx Gastroesophageal Reflux: Yes Other/Comment: Appendicitis. - Genitourinary/Gynecological Hx Genitourinary Disorders: Yes (L BREAST BX-BENIGN.) - Psychiatric Hx Emotional Abuse: No Hx Physical Abuse: No Hx Substance Use: No - Surgical History Hx Appendectomy: Yes (since 13 y/o) - Anesthesia Hx Anesthesia Reactions: No Hx Malignant Hyperthermia: No - Suicidal Assessment Feels Threatened In Home Enviroment: No Family/Social History - Physician Review Nursing Documentation Reviewed: Yes Family/Social History: No Known Family HX Smoking Status: Former Smoker Hx Alcohol Use: No Hx Substance Use: No Allergies/Home Meds Allergies/Adverse Reactions: Allergies No Known Allergies Allergy (Verified 08/21/17 19:44) Home Medications: Home Meds Medication Instructions Recorded Confirmed Atorvastatin [Lipitor] 40 mg PO HS 11/10/14 08/21/17 Carvedilol [Coreg] 25 mg PO BID 11/10/14 08/21/17 Cholecalciferol [Vitamin D 1000 IU] 1,000 iu PO BID 11/10/14 08/21/17 Esomeprazole Magnesium [Nexium] 40 mg PO DAILY 11/10/14 08/21/17 Lisinopril [Zestril] 40 mg PO DAILY 06/23/16 08/21/17 SITagliptin [Januvia] 100 mg PO DAILY 06/23/16 08/21/17 amLODIPine [Norvasc] 5 mg PO DAILY 06/23/16 08/21/17 metFORMIN [glucOPHAGE] 500 mg PO BID 06/23/16 08/21/17 Aspirin [[place] Aspirin] 81 mg PO DAILY 07/12/16 08/21/17 Multivit-Min/FA/Lycopen/Lutein 1 tab PO DAILY 07/17/16 08/21/17 [Centrum Silver Tablet] Polyethylene Glycol 3350 [Miralax] 17 gm PO BID 08/06/16 08/21/17 Review of Systems - Physician Review All systems were reviewed & negative as marked: Yes - Review of Systems Constitutional: absent: Fevers, Night Sweats Respiratory: absent: SOB, Cough Cardiovascular: absent: Chest Pain Gastrointestinal: Abdominal Pain. absent: Diarrhea, Nausea, Vomiting Genitourinary Female: absent: Dysuria, Urine Output Changes Musculoskeletal: absent: Back Pain, Neck Pain Neurological: absent: Headache, Dizziness Physical Exam Vital Signs Reviewed: Yes Vital Signs Temp Pulse Resp BP Pulse Ox 02/09/18 22:24 98.4 F 80 18 141/80 98 Temperature: Afebrile Blood Pressure: Normal Pulse: Regular Respiratory Rate: Normal Appearance: Positive for: Well-Appearing, Non-Toxic, Comfortable Pain Distress: None Mental Status: Positive for: Alert and Oriented X 3 - Systems Exam Head: Present: Atraumatic, Normocephalic Pupils: Present: PERRL Extroacular Muscles: Present: EOMI Conjunctiva: Present: Normal Mouth: Present: Moist Mucous Membranes Neck: Present: Normal Range of Motion Respiratory/Chest: Present: Clear to Auscultation, Good Air Exchange. No: Respiratory Distress, Accessory Muscle Use Cardiovascular: Present: Regular Rate and Rhythm, Normal S1, S2. No: Murmurs Abdomen: Present: Tenderness (Epigastric tenderness; no tenderness to rest of abdomen). No: Distention, Peritoneal Signs, Guarding Back: Present: Normal Inspection Upper Extremity: Present: Normal Inspection. No: Cyanosis, Edema Lower Extremity: Present: Normal Inspection. No: Edema Neurological: Present: Speech Normal Skin: Present: Warm, Dry, Normal Color. No: Rashes Psychiatric: Present: Alert, Oriented x 3, Normal Insight, Normal Concentration Medical Decision Making ED Course and Treatment: 02/09/18 22:52 Impression: 82 year old female presents with abdominal pain Plan: -- CT ABD & Pelvis -- Labs -- Chest X-ray -- Pepcid -- Toradol -- Urinalysis -- Reassess and disposition Prior Visits: Notes and results from previous visits were reviewed. Progress Notes: 02/09/18 23:27 Labs reviewed with no acute lab abnormalities. Pending CT - RAD Interpretation Narrative RAD Interpretations (Text): 02/10/18 02:09 CT SCAN OF THE ABDOMEN AND PELVIS WITH CONTRAST. CLINICAL HISTORY: Abdominal pain. COMPARISON: 08/21/2017. TECHNIQUE: Multiple axial and coronal CT images were obtained through the abdomen and pelvis after administration of intravenous contrast material. COMMENTS: Moderate cardiomegaly. The liver is of uniform attenuation without mass or defect. There is no intra or extrahepatic biliary ductal dilatation. The spleen is normal. The gallbladder is within normal limits. The pancreas is of normal contour and attenuation characteristics. There is no evidence of adrenal mass. Uncomplicated colonic diverticulosis. Both kidneys demonstrate prompt and equal nephrograms. The kidneys are normal in size, shape and configuration. There is no evidence of renal or ureteral mass. No renal or ureteral calculi are identified. There is no hydroureter or hydronephrosis. Left renal parapelvic cysts. No evidence for appendicitis. There is no bowel wall thickening. No evidence for small or large bowel obstruction. There is no evidence of abdominal ascites or lymphadenopathy. Distended bladder. There is no evidence of intrinsic or extrinsic bladder mass. There is no pelvic ascites or lymphadenopathy. Images of the lung bases show no evidence of pleural or parenchymal mass. There are no pleural effusions. The bony structures are free of lytic or blastic lesions. IMPRESSION: No evidence of acute abdominal or pelvic pathology. Credit Control Clerk: Radiologist - Scribe Statement The provider has reviewed the documentation as recorded by the Scribe Primitivo Gautam Provider Scribe Attestation: All medical record entries made by the Scribe were at my direction and personally dictated by me. I have reviewed the chart and agree that the record accurately reflects my personal performance of the history, physical exam, medical decision making, and the department course for this patient. I have also personally directed, reviewed, and agree with the discharge instructions and disposition. Disposition/Present on Arrival - Present on Arrival Any Indicators Present on Arrival: No History of DVT/PE: No History of Uncontrolled Diabetes: No Urinary Catheter: No History Surgical Site Infection Following: None - Disposition Have Diagnosis and Disposition been Completed?: Yes Diagnosis: Abdominal pain Disposition: HOME/ ROUTINE Disposition Time: 02:07 Patient Plan: Discharge Discharge Instructions (ExitCare): Acute Abdomen (Belly Pain), Adult (DC), Nausea and Vomiting, Adult (DC) Print Language: LATVIAN Additional Instructions: All medical record entries made by the Scribe were at my direction and personally dictated by me. I have reviewed the chart and agree that the record accurately reflects my personal performance of the history, physical exam, medical decision making, and the department course for this patient. I have also personally directed, reviewed, and agree with the discharge instructions and disposition. Prescriptions: Ondansetron ODT [Zofran ODT] 4 mg PO Q6H #4 odt Referrals: Santi Leo MD [Staff Provider] - Follow up with primary Forms: [employer] (Turkish)
[2018-02-09 23:18] LABS: BASO # 0.03 K/mm3 (0.0-2.0); BASO % 0.3 % (0.0-3.0); EOS # 0.3 (0.0-0.7); GRAN # 5.11 (1.4-6.5); LYMPH # 2.3 (1.2-3.4); LYMPH % 26.2 % (22.0-35.0); MEAN CELL VOLUME 85.8 fl (80.0-105.0); MEAN CORPUSCULAR HEMOGLOBIN 27.9 pg (25.0-35.0); MEAN CORPUSCULAR HGB CONC 32.5 g/dl (31.0-37.0); MEAN PLATELET VOLUME 9.8 fl (7.0-11.0); MONO % 11.5 % (1.0-6.0); RBC 4.66 10^6/uL (3.5-6.1); RED CELL DISTRIBUTION WIDTH 14.8 % (11.5-14.5); WHITE BLOOD COUNT 8.7 10^3/uL (4.5-11.0)
[2018-02-09 23:19] LABS: ALB/GLOB RATIO 1.2 (1.1-1.8); ALBUMIN 3.9 g/dL (3.0-4.8); ALT/SGPT 34 U/L (7-56); AST/SGOT 28 U/L (14-36); BLOOD UREA NITROGEN 9 mg/dL (7-21); CALCIUM 9.9 mg/dL (8.4-10.5); GFR NON-AFRICAN AMERICAN > 60; LIPASE 103 U/L (23-300)
[2018-02-09 23:28] LABS: INR 0.97; PARTIAL THROMBOPLASTIN TIME 26.9 Seconds (25.1-36.5); PROTHROMBIN TIME 11.1 SECONDS (9.4-12.5)
[2018-02-09 23:31] LABS: TROPONIN I < 0.01 ng/mL
[2018-02-09] MEDS ORDERED: Iohexol 350 MG/100 ML VIAL ONE (23:31)
[2018-02-10 01:41] LABS: PH,URINE 7.5 (4.7-8.0); URINE BILIRUBIN NEGATIVE (NEGATIVE); URINE BLOOD NEGATIVE (NEGATIVE); URINE GLUCOSE (UA) NEGATIVE (NEGATIVE); URINE LEUKOCYTE ESTERASE NEGATIVE Leu/uL (NEGATIVE); URINE PROTEIN NEGATIVE mg/dL (<30 mg/dL); URINE UROBILINOGEN 0.2 E.U./dL (<1 E.U./dL)
[2018-02-10 01:42] LABS: URINE APPEARANCE CLEAR (CLEAR); URINE COLOR LIGHT YELLOW (YELLOW)
[2018-02-10 02:39] VITALS: BP 143/74; PULSE 76; RESP 18; O2SAT 99
--- NOTE | 2018-02-10 09:03 | CT ---
Date of service: 02/09/2018 PROCEDURE: CT Abdomen and Pelvis with contrast HISTORY: abdominal pain COMPARISON: 08/21/2017. CT abdomen and pelvis TECHNIQUE: Intravenous contrast dose: 100 cc Omnipaque 350. Radiation dose: Total exam DLP = 909.19 mGy-cm. This CT exam was performed using one or more of the following dose reduction techniques: Automated exposure control, adjustment of the mA and/or kV according to patient size, and/or use of iterative reconstruction technique. FINDINGS: LOWER THORAX: Unremarkable. LIVER: Unremarkable. No gross lesion or ductal dilatation. GALLBLADDER AND BILE DUCTS: Unremarkable. PANCREAS: Unremarkable. No gross lesion or ductal dilatation. SPLEEN: Unremarkable. ADRENALS: Unremarkable. No mass. KIDNEYS AND URETERS: Unremarkable. No hydronephrosis. No solid mass. VASCULATURE: Atherosclerotic calcification and mural plaque present. Findings are seen throughout the aorta which is non aneurysmal. BOWEL: Diverticulosis without an acute inflammatory component or other associated pathologic process. She APPENDIX: No abnormalities to suggest acute appendicitis. No right lower quadrant inflammatory processes identified. PERITONEUM: Unremarkable. No free fluid. No free air. LYMPH NODES: Unremarkable. No enlarged lymph nodes. BLADDER: Unremarkable. REPRODUCTIVE: Prior hysterectomy. BONES: No acute fracture. OTHER FINDINGS: None. IMPRESSION: No acute findings related to/ accounting for the clinical presentation. Additional benign and/or incidental findings described above. No significant interval change compared to the prior examination(s). Concordant results (preliminary interpretation) provided by [employer]. Procedure Completed: 23:48 Preliminary Report: Dictated and Authenticated: 02:02. Final Interpretation: 08:56. February 10, 2018
--- NOTE | 2018-02-10 09:08 | CARD ---
APPROVED REPORT Date of service: 02/09/2018 EKG Measurement Heart [id number] <Conclusion> Normal sinus rhythm Left axis deviation Moderate voltage criteria for LVH, may be normal variant Abnormal ECG
--- NOTE | 2018-02-10 11:44 | RAD ---
Date of service: 02/09/2018 PROCEDURE: CHEST RADIOGRAPH, 1 VIEW HISTORY: abdominal pain COMPARISON: 08/06/2016. FINDINGS: LUNGS: Clear. PLEURA: No pneumothorax or pleural fluid seen. CARDIOVASCULAR: No aortic atherosclerotic calcification present. No radiographic findings to suggest acute or significant cardiovascular disease. OSSEOUS STRUCTURES: No significant abnormalities. VISUALIZED UPPER ABDOMEN: Normal. OTHER FINDINGS: None. IMPRESSION: No active disease.No significant interval change compared to the prior examination(s).
== END 2018-02-10 02:20 | disposition home or self-care (01) ==
LOC: ED 22:15
DX: R10.9 Unspecified abdominal pain (principal); I25.10 Atherosclerotic heart disease of native coronary artery without angina pectoris; I10 Essential (primary) hypertension; E11.9 Type 2 diabetes mellitus without complications; Z87.891 Personal history of nicotine dependence
CPT/HCPCS: 71045; 74177; 80053; 81003; 83690; 84484; 85025; 85610; 85730; 87086; 93005; 96374; 96375; 99284; J1885; J7030; Q9967